=== PATIENT | female | born 1990 | race Caucasian/White ===

== ENCOUNTER → 2020-01-31 16:55 | Outpatient (BNVA) | payer MEDICAID, SELFPAY | PROVIDERS: Visit Provider Nurse Practitioner | DX: R30.0 Dysuria (principal); B37.3 Candidiasis of vulva and vagina; N92.6 Irregular menstruation, unspecified | CPT/HCPCS: 81000; 81025; 87086 ==

== ENCOUNTER → 2020-02-11 11:16 | Outpatient (BNVA) | payer MEDICAID, SELFPAY | PROVIDERS: Visit Provider Family Medicine Adult Medicine | DX: E11.9 Type 2 diabetes mellitus without complications (principal); E66.01 Morbid (severe) obesity due to excess calories; Z68.42 Body mass index [BMI] 45.0-49.9, adult; N92.6 Irregular menstruation, unspecified; Z00.00 Encounter for general adult medical examination without abnormal findings; F32.9 Major depressive disorder, single episode, unspecified; F41.9 Anxiety disorder, unspecified; Z76.89 Persons encountering health services in other specified circumstances | CPT/HCPCS: 80053; 80061; 83036; 84443; 85025 ==

== ENCOUNTER → 2020-04-15 11:29 | Outpatient (BNVA) | payer MEDICAID, SELFPAY | PROVIDERS: Visit Provider Obstetrics & Gynecology | DX: N91.2 Amenorrhea, unspecified (principal) | CPT/HCPCS: 84146; 84443; 84703 ==

== ENCOUNTER → 2020-05-03 09:53 | Outpatient (BNVA) | payer MEDICAID, SELFPAY | PROVIDERS: Visit Provider Obstetrics & Gynecology | DX: N91.2 Amenorrhea, unspecified (principal) | CPT/HCPCS: 82670; 83001; 84402 ==

== ENCOUNTER → 2020-05-16 08:42 | Outpatient (BNVA) | payer MEDICAID, SELFPAY | PROVIDERS: Visit Provider Internal Medicine | DX: E11.65 Type 2 diabetes mellitus with hyperglycemia (principal); E66.01 Morbid (severe) obesity due to excess calories; Z68.42 Body mass index [BMI] 45.0-49.9, adult; E78.5 Hyperlipidemia, unspecified | CPT/HCPCS: 99205 ==

== ENCOUNTER → 2020-05-20 11:52 | Outpatient (BNVA) | payer MEDICAID, SELFPAY | PROVIDERS: Visit Provider Nurse Practitioner Family | DX: E11.9 Type 2 diabetes mellitus without complications (principal) | CPT/HCPCS: 83036 ==

== ENCOUNTER 2020-05-21 22:33 | Emergency (ER) | payer MEDICAID, SELFPAY ==
[2020-05-21 22:50] VITALS: BP 147/80; PULSE 114; RESP 20; TEMP 37.8; O2SAT 96; BMI 44.6
[2020-05-22 01:01] VITALS: BP 145/76; PULSE 87; RESP 17; O2SAT 92
[2020-05-22 01:23] LABS: Basophils % 0.2 %; Eosinophils % 0.2 %; Hematocrit 32.4 % (37.0-47.0); Hemoglobin 10.7 g/dL (11.5-15.3); Lymphocytes % 12.6 %; Mean Corpuscular Hemoglobin 29.9 pg (28.0-34.0); Mean Corpuscular Volume 90.5 fL (81-99); Mean Platelet Volume 10.8 fL (7.4-10.4); Monocytes # 0.8 10^3/uL (0.2-0.9); Monocytes % 9.8 %; Neutrophils # 6.18 10^3/uL (1.8-7.7); Neutrophils % 76.7 %; Nucleated Red Blood Cells % 0 %; Platelet Count 257 10^3/cmm (130-400); Red Blood Count 3.58 10^6/uL (4.1-5.3); Red Cell Distribution Width 12.8 % (12.1-15.1); White Blood Count 8.1 10^3/uL (4.0-10.0)
[2020-05-22 01:39] LABS: C Reactive Protein 42.9 mg/L (0.0-4.9); Lactic Sepsis W/Reflex 0.9 mmol/L (0.5-2.2)
[2020-05-22 01:40] LABS: Alanine Aminotransferase 13 U/L (0-33); Albumin Level 3.8 g/dL (3.5-5.2); Alkaline Phosphatase 51 IU/L (35-105); Anion Gap 18.8 (5-19); Aspartate Amino Transferase 19 U/L (0-32); Blood Urea Nitrogen 11 mg/dL (6-20); Calcium 9.2 mg/dL (8.5-10.5); Carbon Dioxide 21 mmol/L (22-29); Chloride 98 mmol/L (98-107); Creatinine Clr Calc Pharmacy 141.8464; Globulin 3.1 g/dL (1.3-4.6); Glomerular Filtration Rate 97.6 mL/min (90-130); Glucose 176 mg/dL (65-115); Osmolality Calculated 282 mOsm/kg (285-295); Potassium 3.8 mmol/L (3.5-5.1); Sodium 134 mmol/L (136-145); Total Bilirubin 0.2 mg/dL (0.15-1.2); Total Protein 6.9 g/dL (6.6-8.7)
[2020-05-22] MEDS: sulfamethoxazole-trimeth DS 160-800 mg Tablet 2 TAB PO (03:00)
--- NOTE | 2020-05-22 19:12 | ED_ITS ---
HPI - Skin/Abscess/Foreign Bdy General: Chief complaint: Skin/Abscess/Foreign Body Stated complaint: fever, wound on stomach Time Seen by Provider: 05/22/20 00:28 History of Present Illness: HPI narrative: 79-year-old female who was placed on Bactrim yesterday following a rash appearing on her left lower quadrant of the abdomen. It had drained some. She began to get a fever this evening, which worried her. She had had 2 doses of antibiotics so far. The redness has not grown much. It is not more painful. She has had no other real symptoms besides the fever. complaint: rash Onset (ago): day(s) Tetanus up to date: yes Severity: moderate Quality: burning Pain Consistency: constant Exacerbating factors: medication Associated symptoms: Reports chills and fever(s); Deny arthralgias, cough, short of breath or vomiting Treatments prior to arrival: OTC topical medication and antibiotic Review of Systems Const: Reports: fever(s) and chills Card: Denies: chest pain Resp: Denies: dyspnea or non-productive cough GI: Denies: vomiting Skin/Breast: Reports: rash and new lesions [facility] ED PFSH: Medical History Anxiety and depression Dyslipidemia Encounter for wellness examination Encounter to establish care with new doctor Hypertension associated with diabetes Irregular menstrual cycle Morbid obesity with BMI of 45.0-49.9, adult Polycystic ovarian syndrome Type 2 diabetes mellitus Surgical History History of dental surgery Family History Grandmother Hypertension Maternal CAD (coronary artery disease) Maternal Social History (Updated 05/17/20 @ 16:32 by Jace Camarillo MD) Smoking and tobacco status: never smoked Alcohol intake: current Alcohol intake frequency: holidays/special occasions only Marital status: Life Partner Number of children: 0 Current occupational status: disabled Physical Exam Const: COMMON NORMALS: no acute distress, patient oriented x3 and alert Eye: COMMON NORMALS: Equal, round and reactive pupils present and EOMs intact bilaterally PUPIL: Yes Equal, round and reactive pupils present Chest: COMMONS NORMALS: normal inspection of the chest Resp: COMMON NORMALS: normal respiratory effort, No use of accessory muscles and clear to auscultation bilaterally AUSCULTATION: clear to auscultation bilaterally Cardio: COMMON NORMALS: regular rate and regular rhythm RATE: regular rate RHYTHM: regular rhythm GI: COMMON NORMALS: Normal to inspection, nondistended, normoactive bowel sounds present Neuro: COMMON NORMALS: patient oriented x3 SENSORIUM/ORIENTATION: Yes alert Skin: NARRATIVE SKIN EXAM: Skin ulceration to the left lower quadrant of the abdomen. Surrounding cellulitis. No fluctuance. Minimal induration. Course Vital Signs: Vital signs: Vital Signs Temperature 100.0 F H 05/21/20 22:50 Pulse Rate 87 05/22/20 01:01 Respiratory Rate 17 05/22/20 01:01 Blood Pressure 145/76 05/22/20 01:01 Pulse Oximetry 92 05/22/20 01:01 MDM - Skin/Abscess/Foreign Bdy MDM Narrative: Medical decision making narrative: Bedside ultrasound does not reveal any drainable abscess. Blood cell count is 8.1. CRP is elevated. She is given her night dose of Bactrim here. She will continue the Bactrim and return for worsening rash, nonresolution of fever. Lab Data: Labs: Lab Results 05/22/20 05/22/20 05/22/20 Range/Units 00:55 00:55 00:55 WBC 8.1 (4.0-10.0) 10^3/ uL RBC 3.58 L (4.1-5.3) 10^6/u L Hgb 10.7 L (11.5-15.3) g/dL Hct 32.4 L (37.0-47.0) % MCV 90.5 (81-99) fL MCH 29.9 (28.0-34.0) pg MCHC 33.0 (30.0-36.0) g/dL RDW 12.8 (12.1-15.1) % Plt Count 257 (130-400) 10^3/c mm MPV 10.8 H (7.4-10.4) fL Neut % (Auto) 76.7 % Lymph % (Auto) 12.6 % [place] % (Auto) 9.8 % Eos % (Auto) 0.2 % Baso % (Auto) 0.2 % Neut # (Auto) 6.18 (1.8-7.7) 10^3/u L Lymph # (Auto) 1.0 (0.8-4.8) 10^3/u L [place] # (Auto) 0.8 (0.2-0.9) 10^3/u L Eos # (Auto) 0.0 (0.0-0.8) 10^3/u L Baso # (Auto) 0.0 (0.0-0.1) 10^3/u L Nucleated RBC % (a uto) 0 % Nucleated RBCs # 0.0 /100WBC Sodium 134 L (136-145) mmol/L Potassium 3.8 (3.5-5.1) mmol/L Chloride 98 (98-107) mmol/L Carbon Dioxide 21 L (22-29) mmol/L Anion Gap 18.8 (5-19) BUN 11 (6-20) mg/dL Creatinine 0.7 (0.5-0.9) mg/dL GFR Calculation 97.6 (90-130) mL/min Glucose 176 H (65-115) mg/dL Calculated Osmolal ity 282 L (285-295) mOsm/k g Lactic Acid 0.9 (0.5-2.2) mmol/L Calcium 9.2 (8.5-10.5) mg/dL Total Bilirubin 0.2 (0.15-1.2) mg/dL AST 19 (0-32) U/L ALT 13 (0-33) U/L Alkaline Phosphata se 51 (35-105) IU/L C-Reactive Protein (0.0-4.9) mg/L Total Protein 6.9 (6.6-8.7) g/dL Albumin 3.8 (3.5-5.2) g/dL Globulin 3.1 (1.3-4.6) g/dL 05/22/20 Range/Units 00:55 WBC (4.0-10.0) 10^3/ uL RBC (4.1-5.3) 10^6/u L Hgb (11.5-15.3) g/dL Hct (37.0-47.0) % MCV (81-99) fL MCH (28.0-34.0) pg MCHC (30.0-36.0) g/dL RDW (12.1-15.1) % Plt Count (130-400) 10^3/c mm MPV (7.4-10.4) fL Neut % (Auto) % Lymph % (Auto) % [place] % (Auto) % Eos % (Auto) % Baso % (Auto) % Neut # (Auto) (1.8-7.7) 10^3/u L Lymph # (Auto) (0.8-4.8) 10^3/u L Seward # (Auto) (0.2-0.9) 10^3/u L Eos # (Auto) (0.0-0.8) 10^3/u L Baso # (Auto) (0.0-0.1) 10^3/u L Nucleated RBC % (a uto) % Nucleated RBCs # /100WBC Sodium (136-145) mmol/L Potassium (3.5-5.1) mmol/L Chloride (98-107) mmol/L Carbon Dioxide (22-29) mmol/L Anion Gap (5-19) BUN (6-20) mg/dL Creatinine (0.5-0.9) mg/dL GFR Calculation (90-130) mL/min Glucose (65-115) mg/dL Calculated Osmolal ity (285-295) mOsm/k g Lactic Acid (0.5-2.2) mmol/L Calcium (8.5-10.5) mg/dL Total Bilirubin (0.15-1.2) mg/dL AST (0-32) U/L ALT (0-33) U/L Alkaline Phosphata se (35-105) IU/L C-Reactive Protein 42.9 H (0.0-4.9) mg/L Total Protein (6.6-8.7) g/dL Albumin (3.5-5.2) g/dL Globulin (1.3-4.6) g/dL Discharge Plan Discharge Patient Disposition: Home Clinical Impression: Cellulitis Qualifiers: Site of cellulitis: trunk Site of cellulitis of trunk: abdominal wall Qualified Code(s): L03.311 - Cellulitis of abdominal wall Condition: Stable Prescriptions: No Action ibuprofen 200 mg capsule 200 mg PO Q6H PRNRF: 0 lisinopril 20 mg tablet 20 mg PO DAILY Qty: 30 RF: 5 (DME) OneTouch Ultra Blue Test Strip Strip See Rx Instructions .ROUTE .MEDSUPPLY RF: 0 Jardiance 25 mg tablet 25 mg PO DAILY Qty: 90 RF: 3 Victoza 3-Fady 0.6 mg/0.1 mL (18 mg/3 mL) pen injector See Rx Instructions SUBCUT .COMPLEX Qty: 27 RF: 3 (DME) pen needle, diabetic [BD Ultra-Fine Dina Pen Needle] 32 gauge x 5/32 needle See Rx Instructions .ROUTE .MEDSUPPLY Qty: 90 RF: 3 sulfamethoxazole-trimethoprim [Bactrim] 400-80 mg tablet 1 tab PO BID 7 Days Qty: 14 RF: 0 mupirocin 2 % ointment 1 applic topical TID Qty: 22 RF: 0 niacin 250 mg capsule, extended release 250 mg PO DAILY Qty: 30 RF: 5 metformin 500 mg tablet 500 mg PO BID Qty: 60 RF: 5 (DME) blood-glucose meter [OneTouch Ultra2 Meter] Misc See Rx Instructions .ROUTE .MEDSUPPLY Qty: 1 RF: 0 (DME) lancets [OneTouch UltraSoft Lancets] Misc See Rx Instructions .ROUTE .MEDSUPPLY Qty: 100 RF: 2 venlafaxine 25 mg tablet 25 mg PO BID Qty: 60 RF: 1 norethindrone-e.estradiol-iron [Junel FE (28)] 1.5 mg-30 mcg (21)/75 mg (7) tablet 1 tab PO DAILY Qty: 84 RF: 4 Discharge Orders: Discharge ED (Routine); Ordered 05/22/20 Ordered By: Og Barrett Patient Instructions: Cellulitis (ED) Activity Restrictions/Additional Instructions: Return for continued fever greater than 100 despite 2-3 more doses of antibiotics, spreading redness or swelling despite 2-3 doses of antibiotics, increasing pain, other concerning symptoms. Coding Level of Care Code ED Model And Mold Maker for Maureen Pagan
== END 2020-05-22 04:12 | disposition home or self-care (01) ==
PROVIDERS: Nurse Practitioner Family; Emergency Provider Emergency Medicine
DX: L03.311 Cellulitis of abdominal wall (principal); E78.5 Hyperlipidemia, unspecified; I10 Essential (primary) hypertension; E11.9 Type 2 diabetes mellitus without complications
CPT/HCPCS: 80053; 83605; 85025; 86140; 87040

== ENCOUNTER → 2020-05-26 14:49 | Outpatient (BNVA) | payer MEDICAID, SELFPAY | PROVIDERS: Visit Provider Obstetrics & Gynecology | DX: B00.9 Herpesviral infection, unspecified (principal); N94.9 Unspecified condition associated with female genital organs and menstrual cycle | CPT/HCPCS: 87530 ==

== ENCOUNTER → 2020-08-09 10:39 | Outpatient (BNVA) | payer MEDICAID, SELFPAY | PROVIDERS: Visit Provider Family Medicine Adult Medicine | DX: N94.9 Unspecified condition associated with female genital organs and menstrual cycle (principal) | CPT/HCPCS: 81000 ==

== ENCOUNTER 2020-08-10 05:02 | Inpatient (IN) | payer MEDICAID, SELFPAY ==
[2020-08-10] VITALS (67 sets, daily range): BP systolic 107–206; BP diastolic 72–131; PULSE 72–118; RESP 7–35; TEMP 36.5–37; O2SAT 86–98; BMI 43.4
--- NOTE | 2020-08-10 05:08 | W.ED.ALLEREA ---
Documented by User: Markos Nelson MD 08/10/20 05:11 HPI - Allergic Reaction General: Chief complaint: Allergic Reaction Stated complaint: swollen lip Time Seen by Provider: 08/10/20 05:04 Source: patient Mode of arrival: ambulatory Limitations: no limitations History of Present Illness: HPI narrative: 30-year-old female states she has had upper lip swelling since midnight. She states that swelling came on suddenly and she took some Benadryl and it improved but then started swelling increasingly again. She has never had the swelling before. Her upper lip is quite swollen. She states she had some shortness of breath earlier in the night but that has since improved. She has no difficulty talking or swallowing. She is currently on lisinopril. Denies any fever cough. Associated symptoms: Deny abdominal pain, nausea or vomiting Review of Systems Const: Denies: fever(s), chills, body aches or change in appetite Eyes: Denies: blurry vision or eye discomfort ENMT: Denies: throat pain or dental pain Card: Denies: chest pain Resp: Denies: dyspnea GI: Denies: abdominal pain, nausea, vomiting or diarrhea : Denies: dysuria Musc: Denies: neck pain or back pain Skin/Breast: Denies: rash Neuro: Denies: headache(s) Psych: Denies: depression Cornelio/Lymph: Denies: easy bruising All/Imm: Denies: urticaria PFSH ED PFSH: Medical History Anxiety and depression Chronic gastroesophageal reflux disease Dyslipidemia Encounter for wellness examination Encounter to establish care with new doctor Hypertension associated with diabetes Irregular menstrual cycle Morbid obesity with BMI of 45.0-49.9, adult Polycystic ovarian syndrome Type 2 diabetes mellitus Uvulitis Yeast vaginitis Surgical History History of dental surgery Family History Grandmother Hypertension Maternal CAD (coronary artery disease) Maternal Social History Smoking and tobacco status: never smoked Alcohol intake: current Alcohol intake frequency: holidays/special occasions only Marital status: Life Partner Current occupational status: disabled Physical Exam Const: COMMON NORMALS: no acute distress, patient oriented x3 and healthy appearing HENMT: COMMON NORMALS: normocephalic and atraumatic HEAD & SCALP: normocephalic and atraumatic OTHER: severe swelling to upper lip, no airway involvement, no tongue swelling Eye: COMMON NORMALS: Equal, round and reactive pupils present and EOMs intact bilaterally PUPIL: Yes Equal, round and reactive pupils present Neck/C-Spine: COMMON NORMALS: full ROM and supple Chest: COMMONS NORMALS: normal inspection of the chest and normal palpation of entire chest wall Resp: COMMON NORMALS: normal respiratory effort, No retractions, No use of accessory muscles and clear to auscultation bilaterally AUSCULTATION: clear to auscultation bilaterally Cardio: COMMON NORMALS: regular rate, regular rhythm and No murmurs present (Cardio) RATE: regular rate RHYTHM: regular rhythm GI: COMMON NORMALS: Normal to inspection, nondistended, normoactive bowel sounds present, Soft to palpation, non-tender and no masses PALPATION: Yes Soft to palpation Extremity: COMMON NORMALS: normal to inspection and full ROM Neuro: COMMON NORMALS: patient oriented x3, moves all extremities and no focal motor deficits Psych: COMMON NORMALS: mental status grossly normal, Normal thought process present and cooperative THOUGHT PROCESS: Normal thought process present Skin: COMMON NORMALS: no rashes or lesions noted and no wounds GENERAL SKIN EXAM: no rashes or lesions noted Course Vital Signs: Vital signs: Vital Signs Temperature 98.6 F 08/10/20 12:00 Pulse Rate 81 08/10/20 14:15 Respiratory Rate 19 H 08/10/20 14:15 Blood Pressure 132/93 08/10/20 14:15 Pulse Oximetry 96 08/10/20 14:15 MDM - Allergic Reaction Lab Data: Labs: Lab Results 08/10/20 Range/Units 05:12 Complement C4 19 (10-40) mg/dL Discharge Plan Discharge Patient Disposition: Admitted As Inpatient Admit Provider: Rolanda White Clinical Impression: Angioedema, Allergic reaction, Adverse reaction to drug, Hypoxia Condition: Stable Sign Out Sign Out Data: Patient Sign Out occurred on 08/10/20 at 06:11. Patient's care was discussed, and care was transferred from to Fabrice Alberto DO. Coding Level of Care Code ED Pharmacoepidemiologist for Chg Fwd Exam Comprehensive Documented by User: Fabrice Alberto DO 08/10/20 14:44 HPI - Allergic Reaction General: Chief complaint: Allergic Reaction Stated complaint: swollen lip Time Seen by Provider: 08/10/20 05:04 PFSH ED PFSH: Medical History Anxiety and depression Chronic gastroesophageal reflux disease Dyslipidemia Encounter for wellness examination Encounter to establish care with new doctor Hypertension associated with diabetes Irregular menstrual cycle Morbid obesity with BMI of 45.0-49.9, adult Polycystic ovarian syndrome Type 2 diabetes mellitus Uvulitis Yeast vaginitis Surgical History History of dental surgery Family History Grandmother Hypertension Maternal CAD (coronary artery disease) Maternal Social History Smoking and tobacco status: never smoked Alcohol intake: current Alcohol intake frequency: holidays/special occasions only Marital status: Life Partner Current occupational status: disabled Course Vital Signs: Vital signs: Vital Signs Temperature 98.6 F 08/10/20 12:00 Pulse Rate 81 08/10/20 14:15 Respiratory Rate 19 H 08/10/20 14:15 Blood Pressure 132/93 08/10/20 14:15 Pulse Oximetry 96 08/10/20 14:15 MDM - Allergic Reaction MDM Narrative: Medical decision making narrative: Care assumed a change of shift I went to check on the patient she is consistently satting with a good waveform at 86% with 2 L by nasal cannula she begins to go up and gets to 9091% at 4 L she did now is consistently 96%. She still has quite impressive swelling of the upper lip is mildly tachycardic she last received epi 50 minutes ago. On her lung exam there is diminished breath sounds but no expiratory wheezes. Discussed with the hospitalist will admit her to the ICU for observation and given her IV Pepcid she had previously received steroids epi and Benadryl. We will give scheduled Benadryl. She will need medication adjustment to maintain her blood pressure she was impressively hypertensive when she first came in at 178/100, she is now 153/85. Lab Data: Labs: Lab Results 08/10/20 Range/Units 05:12 Complement C4 19 (10-40) mg/dL Discharge Plan Discharge Patient Disposition: Admitted As Inpatient Admit Provider: Rolanda White Clinical Impression: Angioedema, Allergic reaction, Adverse reaction to drug, Hypoxia Condition: Stable Sign Out Sign Out Data: Patient Sign Out occurred on 08/10/20 at 06:11. Patient's care was discussed, and care was transferred from to Fabrice Alberto DO. Coding Level of Care Code ED Pharmacoepidemiologist for Maureen Fwd Exam Comprehensive
[2020-08-10] MEDS: diphenhydrAMINE 50 mg/mL SDV 1mL IVP ×6 (05:15→21:49)
[2020-08-10] MEDS: EPINEPHrine 1 mg/mL INJ 0.5 MG IM (05:16)
[2020-08-10] MEDS: famotidine 20 mg/2 mL INJ 40 MG IVP (06:15)
--- NOTE | 2020-08-10 08:03 | PC.PHAR ---
PT STATES SHE TAKES CARE OF HER OWN MEDICATIONS-PT STATES SHE HAS STILL BEEN TAKING 500MG OF METFORMIN BID-PT HAS RX READY AT [facility] FOR 1000MG BID-PT HASNT PICKED UP THAT RX YET-PT ALSO HAS A FLUCONAZOLE 150MG TO WOOD TOOL MAKER FROM [facility]-
[2020-08-10 09:26] LABS: Glucose Point of Care 241 mg/dL (70-110)
[2020-08-10] MEDS: metoprolol succinate ER (24 HR) 50 mg Tablet 25 MG PO (09:33)
[2020-08-10] MEDS: amlodipine 5 mg Tablet PO (09:33)
[2020-08-10] MEDS: famotidine 20 mg/2 mL INJ IVP ×4 (09:34→20:08)
[2020-08-10] MEDS: metoprolol tartrate 1 mg/1 mL SDV 5 mL 5 MG IV (09:35)
--- NOTE | 2020-08-10 10:52 | PC.CHAP ---
Pastoral Care Encounter/Spiritual Assessment Type of Contact [] Declined shank maker visit [] Patient/Family/Request visit [] Outpatient visit [] Follow-up visit [] Physician referral [] Code/Alert [x] Routine visit [] Staff referral [] Actively dying [] Patient sleeping [] Family support [] [] Out of room [] Palliative care [] [x] Receiving care in room [] Pre-surgical visit [] Trauma [] Long length of stay [x] ICU visit [] Other: Relational/Emotional Strength [] Patient feels connected with others/family/visitors/staff [] Distress [] Loneliness/isolation [] Abandonment Spirituality of Patient [x] Person of Jeanne [] Attends Zoroastrian of their Jeanne [] Believes in Prayer [] Reads Bible or Sikhism materials [] There are Spiritual issues to be addressed Lockstitch Sleeve Setter Interventions [x] Prayer [x] Active listening [x] Non-anxious presence [x] Spiritual/emotional support [] Crisis/trauma care [] Spiritual counseling [] Bereavement support [] Provided bereavement packet [] Provided Bible/devotional materials [] Provided toy/stuffed animal, coloring book to patient or family member [] Provided Communion [] Anointing/[place] [] Salvation [x] Completed spiritual assessment [] Other: Impact on Illness or Injury [] Angry [] Fearful [] Anxious [] Often cries [] Exhaustion [] Unable to work [] Unable to attend mu-ism [] Unable to walk/stand [] Unable to read [] Unable to drive [] Unable to eat/drink [] Unable to sleep [] Unable to be with family [] Patient intubated [] Other: Summary resting well... Time spent with patient 10 min
--- NOTE | 2020-08-10 10:53 | PC.CHAP ---
Pastoral Care Encounter/Spiritual Assessment Type of Contact [] Declined bread dumper visit [] Patient/Family/Request visit [] Outpatient visit [] Follow-up visit [] Physician referral [] Code/Alert [x] Routine visit [] Staff referral [] Actively dying [] Patient sleeping [] Family support [] [] Out of room [] Palliative care [] [] Receiving care in room [] Pre-surgical visit [] Trauma [] Long length of stay [x] ICU visit [] Other: Relational/Emotional Strength [] Patient feels connected with others/family/visitors/staff [] Distress [] Loneliness/isolation [] Abandonment Spirituality of Patient [] Person of Jeanne [] Attends Christianity of their Jeanne [] Believes in Prayer [] Reads Bible or Jainism materials [] There are Spiritual issues to be addressed Manager File Interventions [x] Prayer [] Active listening [] Non-anxious presence [] Spiritual/emotional support [] Crisis/trauma care [] Spiritual counseling [] Bereavement support [] Provided bereavement packet [] Provided Bible/devotional materials [] Provided toy/stuffed animal, coloring book to patient or family member [] Provided Communion [] Anointing/Cutler [] Salvation [x] Completed spiritual assessment [] Other: Impact on Illness or Injury [] Angry [] Fearful [] Anxious [] Often cries [] Exhaustion [] Unable to work [] Unable to attend mandaen [] Unable to walk/stand [] Unable to read [] Unable to drive [] Unable to eat/drink [] Unable to sleep [] Unable to be with family [] Patient intubated [] Other: Summary Time spent with patient
--- NOTE | 2020-08-10 10:59 | PC.NURSE ---
Nurse received patient from ER staff at 0820. Vitals within normal limits. Pt has no complaints at this time. Upper lip is significantly swollen and pt does have some trouble speaking clearly because of it, but pt is not experiencing any difficulty breathing. No adventitious breath sounds at this time.
--- NOTE | 2020-08-10 11:00 | P.HP_ITS ---
Providers/Chief Complaint Admitting Physician: Rolanda White MD Chief Complaint: swollen lip History of Present Illness Adele Rodriguez is a 30 year old female who presented overnight after waking up at midnight with c/o sudden facial swelling, lip swelling, dyspnea. No hives. No new food. No past history of anaphylaxis. No known food allergies. No animal or insect bites. No new medications Review of Systems General: Reports: 10 or more systems reviewed and unremarkable except in HPI and below Const: Denies: fever(s), chills or body aches Eyes: Denies: change in vision, blurry vision or photophobia ENMT: Reports: hoarseness; Denies: throat pain, enlarged tonsils, odynophagia or nasal congestion Card: Denies: chest pain, palpitations, irregular heart rhythm, edema, swelling of feet/ankles, lightheadedness, pre-syncope, dyspnea on exertion or orthopnea Resp: Denies: dyspnea, productive cough, non-productive cough, wheezing, stridor, pain on inspiration, change in phlegm color, hemoptysis or chest congestion GI: Denies: abdominal pain, nausea, vomiting, hematemesis, coffee ground emesis, dysphagia, heartburn, diarrhea, constipation, GI cramping, change in st ool character, hematochezia or melena : Denies: flank pain, difficulty voiding, dysuria, urinary frequency, urinary urgency, urinary hesitancy or hematuria Musc: Denies: neck pain, back pain, extremity pain, joint swelling, joint warmth or deformity Neuro: Denies: headache(s), numbness in extremities, weakness in extremities, sensory changes, difficulty walking, frequent falls, dizziness, vertigo, behavioral changes, Slurred speech present or seizure-like activity Psych: Denies: anxiety, depression, suicidal ideation or homicidal ideation Endo: Denies: polyuria, polydipsia, tired all the time, cold intolerance or hot flashes Cornelio/Lymph: Denies: easy bruising or easy bleeding Medications/Allergies Home Medications Medication Instructions Recorded Confirmed Last Taken Type blood-glucose meter #1 ea 02/15/20 08/10/20 Unknown Rx lancets #100 ea 02/15/20 08/10/20 Unknown Rx blood sugar diagnostic ea 05/16/20 08/10/20 Unknown History pen needle, diabetic 32 gauge x #90 ea 05/16/20 08/10/20 Unknown Rx fluconazole 150 mg tablet 150 mg PO Q3D #2 tab 08/09/20 08/10/20 Unknown Rx .08/07 () 1 tab PO DAILY@08/10/20 08/10/20 08/09/20 History aspirin [Aspir-81] 81 mg PO PRN 08/10/20 08/10/20 Unknown History empagliflozin [Jardiance] 25 mg PO DAILY@08/10/20 08/10/20 08/09/20 History ibuprofen 400 mg PO PRN 08/10/20 08/10/20 Unknown History liraglutide [Victoza 3-Fady] 1.8 mg SUBCUT DAILY@08/10/20 08/10/20 08/09/20 History metformin 1,000 mg PO BID 08/10/20 08/10/20 Unknown History metformin 500 mg PO BID@08/10/20 08/10/20 08/09/20 History miconazole nitrate [Monistat 3] 200 mg VAGINAL PRN 08/10/20 08/10/20 08/09/20 History pantoprazole 20 mg PO DAILY@08/10/20 08/10/20 08/09/20 History venlafaxine 25 mg PO BID@08/10/20 08/10/20 08/09/20 History Allergies Allergy/AdvReac Type Severity Reaction Status Date / Time ROSALINA Inhibitors Allergy ALGY-Swell Verified 08/10/20 07:52 Lip/Tongue/Throat citalopram [From Celexa] Allergy ADR-Nausea Verified 08/10/20 07:52 lisinopril Allergy ALGY-Swell Verified 08/10/20 07:52 Lip/Tongue/Throat PFSH Acute PFSH: Medical History Anxiety and depression Chronic gastroesophageal reflux disease Dyslipidemia Encounter for wellness examination Encounter to establish care with new doctor Hypertension associated with diabetes Irregular menstrual cycle Morbid obesity with BMI of 45.0-49.9, adult Polycystic ovarian syndrome Type 2 diabetes mellitus Uvulitis Yeast vaginitis Surgical History History of dental surgery Family History Grandmother Hypertension Maternal CAD (coronary artery disease) Maternal Social History Smoking and tobacco status: never smoked Alcohol intake: current Alcohol intake frequency: holidays/special occasions only Marital status: Life Partner Current occupational status: disabled Vitals/I&O/Wt Last Vital Signs Temp 97.9 F 08/10/20 19:15 Pulse 91 08/10/20 22:15 Resp 24 H 08/10/20 22:15 BP 155/90 08/10/20 22:15 Pulse Ox 95 08/10/20 22:15 08/10/20 08/10/20 08/10/20 06:59 14:59 22:59 Intake Total 480 / 480 810 / 1290 Balance 480 / 480 810 / 1290 Weight last 48 hrs Weight 111.13 kg Physical Exam Narrative: EXAM NARRATIVE: General: No acute distress, AO x3 HEENT: PERRLA, pupils bilaterally equal and reactive, pallors not present Chest: Normal vesicular breath sounds, no added sounds, equal good air entry bilaterally CVS: S1-S2 regular, no murmurs, no tachycardia, no gallops, no rubs Abdomen: Soft, nontender, no organomegaly, bowel sounds present Neuro: No focal deficits, no facial deformity, AO x3, power 5/5 in all limbs Extremities: facial swelling, lip swelling+, improving A&P Assessment and plan (1) Anaphylaxis: unclear trigger s/p epinephrine in [facility] ER Fcaial swelling and edema much improved continue steroids systemic and benadryl. monitor for ~24 hrs for any signs of recurrence no shock allergy testing as outpatient Status: Acute Qualifiers: Encounter type: initial encounter Qualified Code(s): T78.2XXA - Anaphylactic shock, unspecified, initial encounter (2) Angioedema: Status: Acute Qualifiers: Encounter type: initial encounter Qualified Code(s): T78.3XXA - Angioneurotic edema, initial encounter Attestations Medical Necessity Statement*: anaphylaxis, needs iv steorids and antihistamines Coding Level of Care Code Acute Fisheries Diver for [facility] Latasha Diagnoses Anaphylaxis T78.2XXA Encounter type: initial encounter Angioedema T78.3XXA Encounter type: initial encounter
--- NOTE | 2020-08-10 11:02 | PC.NURSE ---
Nurse is continuing to monitor patient. Lip swelling is noticeably decreased. Speech is still unclear due to swelling, but also improved. Breath sounds continue to be normal.
--- NOTE | 2020-08-10 11:25 | PC.NURSE ---
Per Dr Bradshaw, Held Epinephrine.
[2020-08-10 12:19] LABS: Glucose Point of Care 225 mg/dL (70-110)
[2020-08-10 17:47] LABS: Glucose Point of Care 245 mg/dL (70-110)
--- NOTE | 2020-08-10 18:36 | PC.NURSE ---
Late note: 1635 Pepcid and diphenhydramine was late due to no IV access. Iv in left wrist went bad and nurses had difficulty in getting a new IV. One was eventually placed via ultrasound.
--- NOTE | 2020-08-10 18:37 | PC.NURSE ---
Shift summary: Uneventful shift. Patient came to the ICU with visibly swollen lips and difficulty speaking due to the swelling, but no airway compromise. Throughout shift the swelling has decraed and pt speaking has improved. Airway remains intact and vitals stayed within normal limits throughout shift.
[2020-08-10 19:58] LABS: Glucose Point of Care 303 mg/dL (70-110)
--- NOTE | 2020-08-10 21:53 | PC.NURSE ---
New Orders; RN observed patient's lips to have swollen in size compared to previous assessment done 1 hour ago. Patient placed in high fowlers and assessed. No other complications noted at this time. SPO2 status 93-95%. No audible stridor, and patient denies any complications or issues with her breathing. RN notified MD Christopher stone driller and was given new orders to give another additional early dose of Benadryl IVP. Med administered as indicated. Patient resting with VSS/remaining at baseline. Room visible from nurses station.
[2020-08-11] VITALS (35 sets, daily range): BP systolic 92–152; BP diastolic 72–104; PULSE 65–96; RESP 12–26; TEMP 36.7–37.2; O2SAT 90–96
[2020-08-11] MEDS: famotidine 20 mg/2 mL INJ IVP ×4 (00:35→13:10)
[2020-08-11] MEDS: diphenhydrAMINE 50 mg/mL SDV 1mL IVP ×4 (00:35→13:10)
[2020-08-11 04:53] LABS: Basophils % 0.1 %; Hematocrit 32.4 % (37.0-47.0); Hemoglobin 10.3 g/dL (11.5-15.3); Lymphocytes # 1.4 10^3/uL (0.8-4.8); Lymphocytes % 9.7 %; Mean Corpuscular HGB Conc 31.8 g/dL (30.0-36.0); Mean Corpuscular Hemoglobin 28.9 pg (28.0-34.0); Mean Corpuscular Volume 90.8 fL (81-99); Mean Platelet Volume 10.4 fL (7.4-10.4); Monocytes # 0.4 10^3/uL (0.2-0.9); Neutrophils # 12.25 10^3/uL (1.8-7.7); Neutrophils % 85.7 %; Nucleated Red Blood Cells % 0 %; Platelet Count 290 10^3/cmm (130-400); Red Blood Count 3.57 10^6/uL (4.1-5.3); Red Cell Distribution Width 13.9 % (12.1-15.1); White Blood Count 14.3 10^3/uL (4.0-10.0)
[2020-08-11 05:10] LABS: Alanine Aminotransferase 18 U/L (0-33); Albumin Level 3.7 g/dL (3.5-5.2); Alkaline Phosphatase 50 IU/L (35-105); Anion Gap 20.2 (5-19); Aspartate Amino Transferase 20 U/L (0-32); Blood Urea Nitrogen 18 mg/dL (6-20); Calcium 9.3 mg/dL (8.5-10.5); Carbon Dioxide 19 mmol/L (22-29); Chloride 100 mmol/L (98-107); Globulin 3.6 g/dL (1.3-4.6); Glomerular Filtration Rate 115.9 mL/min (90-130); Glucose 177 mg/dL (65-115); Osmolality Calculated 286 mOsm/kg (285-295); Potassium 4.2 mmol/L (3.5-5.1); Sodium 135 mmol/L (136-145); Total Bilirubin 0.2 mg/dL (0.15-1.2); Total Protein 7.3 g/dL (6.6-8.7)
--- NOTE | 2020-08-11 05:34 | PC.NURSE ---
Patient c/o severe itching and burning noted to labia area. RN assessed and found patient to be extremely excoriated with deep redness to vaginal area. Patient verbalized that she has recently been diagnosed with yeast infection earlier this week, by PCP. RN questioned if patient has been prescribed and taken any new medications based on this dx, to which patient verbalized no . RN educated on need for correct wiping techniques, as fecal matter was found within vaginal area with excoriation and redness and with pt c/o tenderness, itching, and burning. RN advised patient on best way to clean area, and how to wipe when using the restroom to avoid fecal matter entering or coming in contact with vaginal area. Warm water with gentle soap was given with wash cloths, in order for patient to clean herself in efforts of removing fecal matter. Patient verbalized understandment and almost immediate relief with slight itching still being noted.
[2020-08-11 08:09] LABS: Glucose Point of Care 196 mg/dL (70-110)
--- NOTE | 2020-08-11 09:08 | PC.CHAP ---
Pastoral Care Encounter/Spiritual Assessment Type of Contact [] Declined canal boat operator visit [] Patient/Family/Request visit [] Outpatient visit [] Follow-up visit [] Physician referral [] Code/Alert [x] Routine visit [] Staff referral [] Actively dying [] Patient sleeping [] Family support [] [] Out of room [] Palliative care [] [] Receiving care in room [] Pre-surgical visit [] Trauma [] Long length of stay [x] ICU visit [] Other: Relational/Emotional Strength [] Patient feels connected with others/family/visitors/staff [] Distress [] Loneliness/isolation [] Abandonment Spirituality of Patient [x] Person of Jeanne [] Attends Druze of their Jeanne [] Believes in Prayer [] Reads Bible or Lutheran materials [] There are Spiritual issues to be addressed Ranch Helper Interventions [x] Prayer [x] Active listening [x] Non-anxious presence [x] Spiritual/emotional support [] Crisis/trauma care [] Spiritual counseling [] Bereavement support [] Provided bereavement packet [] Provided Bible/devotional materials [] Provided toy/stuffed animal, coloring book to patient or family member [] Provided Communion [] Anointing/Atco [] Salvation [x] Completed spiritual assessment [] Other: Impact on Illness or Injury [] Angry [] Fearful [] Anxious [] Often cries [] Exhaustion [] Unable to work [] Unable to attend yazdanism [] Unable to walk/stand [] Unable to read [] Unable to drive [] Unable to eat/drink [] Unable to sleep [] Unable to be with family [] Patient intubated [] Other: Summary upper lip returned to normal size, however reaction still present in bottom lip... Time spent with patient 5 min
[2020-08-11 11:38] LABS: Glucose Point of Care 283 mg/dL (70-110)
--- NOTE | 2020-08-11 18:52 | PM.DCS ---
Discharge Providers Date of Admission: 08/10/20 08:35 Date of Discharge: August 11, 2020 Attending Provider at Admission: Rolanda White MD Attending Provider at Discharge: Natalie Bradshaw MD Diagnoses at Discharge Discharge Diagnosis (1) Anaphylaxis: Status: Acute Qualifiers: Encounter type: initial encounter Qualified Code(s): T78.2XXA - Anaphylactic shock, unspecified, initial encounter (2) Angioedema: Status: Acute Qualifiers: Encounter type: initial encounter Qualified Code(s): T78.3XXA - Angioneurotic edema, initial encounter Reason for Visit Reason for Visit: swollen lip Hospital Course Hospital Course Adele Rodriguez is a 30 year old female who presented overnight after waking up at midnight with c/o sudden facial swelling, lip swelling, dyspnea. No hives. No new food. No past history of anaphylaxis. No known food allergies. No animal or insect bites. No new medications. HAd anaphylaxis. Treated with epinephrine in the ER, followed by systemic steroids and benadryl for ~24 hrs with improvement and without signs of recurrence. 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: no focal neuro deficits Discharge Data Data Completed and Pending: Labs from last 24 hours 08/11/20 08/11/20 08/11/20 11:35 07:40 04:17 WBC RBC Hgb Hct MCV MCH MCHC RDW Plt Count MPV Neut % (Auto) Lymph % (Auto) [place] % (Auto) Eos % (Auto) Baso % (Auto) Neut # (Auto) Lymph # (Auto) [place] # (Auto) Eos # (Auto) Baso # (Auto) Nucleated RBC % (a uto) Nucleated RBCs # Sodium 135 L Potassium 4.2 Chloride 100 Carbon Dioxide 19 L Anion Gap 20.2 H BUN 18 Creatinine 0.6 GFR Calculation 115.9 Glucose 177 H POC Glucose 283 H 196 H Calculated Osmolal ity 286 Calcium 9.3 Total Bilirubin 0.2 AST 20 ALT 18 Alkaline Phosphata se 50 Total Protein 7.3 Albumin 3.7 Globulin 3.6 08/11/20 08/10/20 04:17 19:54 WBC 14.3 H RBC 3.57 L Hgb 10.3 L Hct 32.4 L MCV 90.8 MCH 28.9 MCHC 31.8 RDW 13.9 Plt Count 290 MPV 10.4 Neut % (Auto) 85.7 Lymph % (Auto) 9.7 [place] % (Auto) 3.0 Eos % (Auto) 0.0 Baso % (Auto) 0.1 Neut # (Auto) 12.25 H Lymph # (Auto) 1.4 [place] # (Auto) 0.4 Eos # (Auto) 0.0 Baso # (Auto) 0.0 Nucleated RBC % (a uto) 0 Nucleated RBCs # 0.0 Sodium Potassium Chloride Carbon Dioxide Anion Gap BUN Creatinine GFR Calculation Glucose POC Glucose 303 H Calculated Osmolal ity Calcium Total Bilirubin AST ALT Alkaline Phosphata se Total Protein Albumin Globulin Vitals: Last Vital Signs Temp 98.1 F 08/11/20 11:00 Pulse 89 08/11/20 13:00 Resp 14 08/11/20 13:00 BP 144/72 08/11/20 13:00 Pulse Ox 95 08/11/20 13:00 Discharge Plan Discharge Patient Disposition: Home Condition: Stable Prescriptions: New epinephrine 0.3 mg/0.3 mL auto-injector 0.3 mg IM Q10M PRN (Reason: anaphylaxis) Qty: 1 RF: 1 Continued (DME) OneTouch Ultra Blue Test Strip Strip See Rx Instructions .ROUTE .MEDSUPPLY RF: 0 (DME) pen needle, diabetic [BD Ultra-Fine Dina Pen Needle] 32 gauge x 5/32 needle See Rx Instructions .ROUTE .MEDSUPPLY Qty: 90 RF: 3 fluconazole [Diflucan] 150 mg tablet 150 mg PO Q3D Qty: 2 RF: 0 (DME) blood-glucose meter [OneTouch Ultra2 Meter] Misc See Rx Instructions .ROUTE .MEDSUPPLY Qty: 1 RF: 0 (DME) lancets [OneTouch UltraSoft Lancets] Misc See Rx Instructions .ROUTE .MEDSUPPLY Qty: 100 RF: 2 aspirin 81 mg Tablet,Delayed Release (Dr/Ec) 81 mg PO PRN RF: 0 ibuprofen 200 mg Tablet 400 mg PO PRN RF: 0 miconazole nitrate 200 mg Suppository 200 mg VAGINAL PRN RF: 0 Junel FE 1.5/30 (28) 1.5 mg-30 mcg (21)/75 mg (7) tablet 1 tab PO DAILY@20 RF: 0 venlafaxine 25 mg tablet 25 mg PO BID@ RF: 0 pantoprazole 20 mg tablet,delayed release (DR/EC) 20 mg PO DAILY@07 RF: 0 Victoza 3-Fady 0.6 mg/0.1 mL (18 mg/3 mL) pen injector 1.8 mg SUBCUT DAILY@07 RF: 0 Jardiance 25 mg tablet 25 mg PO DAILY@07 RF: 0 metformin 500 mg tablet 500 mg PO BID@, RF: 0 metformin 500 mg tablet 1,000 mg PO BID RF: 0 Discharge Orders: Discharge Order (Routine); Ordered 08/11/20 Ordered By: Natalie Bradshaw Discharge Diet: Usual diet Discharge Activity: Resume usual activity Patient Instructions: Epinephrine (Injection), Anaphylaxis (DC), Opioid Safety Activity Restrictions/Additional Instructions: NO APPOINTMENT SCHEDULED FOR FOLLOW UP , PATIENT THINKING OF SWITHCHING PRIMARY CARE, SHE WILL NEED TO FOLLOW UP FOR NEW PRIMARY CARE PHYSICAN OF CHOICE Discharge Attestations Time Spent in Discharge Care*: less than 30 min Quality Metrics Clinical Quality Measures During this hospital stay, did patient experience: None Coding Level of Care Code Acute Chg FW DC note Diagnoses Anaphylaxis T78.2XXA Encounter type: initial encounter Angioedema T78.3XXA Encounter type: initial encounter
== END 2020-08-11 14:09 | disposition home or self-care (01) | DRG 916 ==
LOC: ER 06:27 → ICU 07:59
PROVIDERS: Admitting Provider Internal Medicine; Emergency Provider Family Medicine; Visit Provider Student in an Organized Health Care Education/Training Program
DX: T78.2XXA Anaphylactic shock, unspecified, initial encounter (principal); Z68.41 Body mass index [BMI] 40.0-44.9, adult; F41.8 Other specified anxiety disorders; K21.9 Gastro-esophageal reflux disease without esophagitis; E78.5 Hyperlipidemia, unspecified; I10 Essential (primary) hypertension; E11.9 Type 2 diabetes mellitus without complications; E66.01 Morbid (severe) obesity due to excess calories; E28.2 Polycystic ovarian syndrome; T78.3XXA Angioneurotic edema, initial encounter; Z79.82 Long term (current) use of aspirin; Z79.4 Long term (current) use of insulin
CPT/HCPCS: 36415; 36416; 80053; 82962; 85025; 86160; 96372; 96374; 96375; 99285; J0171; J1200; J1815; J2930; J3490

== ENCOUNTER → 2020-08-19 14:20 | Outpatient (BNVA) | payer MEDICAID, SELFPAY | PROVIDERS: Visit Provider Nurse Practitioner Women's Health | DX: Z01.419 Encounter for gynecological examination (general) (routine) without abnormal findings (principal); N89.8 Other specified noninflammatory disorders of vagina; A60.04 Herpesviral vulvovaginitis; E28.2 Polycystic ovarian syndrome; B37.3 Candidiasis of vulva and vagina | CPT/HCPCS: 87491; 87591; 87661; 88175 ==

== ENCOUNTER → 2020-10-13 14:29 | Outpatient (BNVA) | payer MEDICAID, SELFPAY | PROVIDERS: PCP Family Medicine Adult Medicine; Visit Provider Obstetrics & Gynecology | DX: R87.612 Low grade squamous intraepithelial lesion on cytologic smear of cervix (LGSIL) (principal); R87.810 Cervical high risk human papillomavirus (HPV) DNA test positive | CPT/HCPCS: 81025; 88305 ==

== ENCOUNTER → 2020-11-17 11:05 | Outpatient (BNVA) | payer MEDICAID, SELFPAY | PROVIDERS: PCP Family Medicine Adult Medicine; Visit Provider Obstetrics & Gynecology | DX: R39.9 Unspecified symptoms and signs involving the genitourinary system (principal) | CPT/HCPCS: 81000; 87077; 87086; 87184 ==

== ENCOUNTER → 2020-12-09 08:44 | Outpatient (BNVA) | payer MEDICAID, SELFPAY | PROVIDERS: PCP Family Medicine Adult Medicine; Visit Provider Family Medicine Adult Medicine | DX: E66.01 Morbid (severe) obesity due to excess calories (principal); E78.5 Hyperlipidemia, unspecified; Z68.42 Body mass index [BMI] 45.0-49.9, adult | CPT/HCPCS: 80061; 83036 ==

== ENCOUNTER → 2021-01-16 09:08 | Outpatient (BNVA) | payer MEDICAID, SELFPAY | PROVIDERS: PCP Family Medicine Adult Medicine; Visit Provider Internal Medicine | DX: E11.65 Type 2 diabetes mellitus with hyperglycemia (principal); E78.5 Hyperlipidemia, unspecified; E66.01 Morbid (severe) obesity due to excess calories; Z68.42 Body mass index [BMI] 45.0-49.9, adult; Z79.84 Long term (current) use of oral hypoglycemic drugs; Z87.891 Personal history of nicotine dependence | CPT/HCPCS: 99214 ==

== ENCOUNTER → 2021-03-24 10:33 | Outpatient (BNVA) | payer MEDICAID, SELFPAY | PROVIDERS: PCP Family Medicine Adult Medicine; Visit Provider Internal Medicine | DX: E11.65 Type 2 diabetes mellitus with hyperglycemia (principal); E78.5 Hyperlipidemia, unspecified; E66.01 Morbid (severe) obesity due to excess calories; Z68.42 Body mass index [BMI] 45.0-49.9, adult; Z79.84 Long term (current) use of oral hypoglycemic drugs | CPT/HCPCS: 99214 ==

== ENCOUNTER → 2021-04-19 10:07 | Outpatient (BNVA) | payer MEDICAID, SELFPAY | PROVIDERS: PCP Family Medicine Adult Medicine; Visit Provider Family Medicine Adult Medicine | DX: D64.9 Anemia, unspecified (principal); D63.8 Anemia in other chronic diseases classified elsewhere; E11.9 Type 2 diabetes mellitus without complications; E11.59 Type 2 diabetes mellitus with other circulatory complications; I10 Essential (primary) hypertension | CPT/HCPCS: 80053; 80061; 83036; 85025 ==

== ENCOUNTER → 2021-04-20 08:50 | Outpatient (BNVA) | payer MEDICAID, SELFPAY | PROVIDERS: PCP Family Medicine Adult Medicine; Visit Provider Obstetrics & Gynecology | DX: R87.612 Low grade squamous intraepithelial lesion on cytologic smear of cervix (LGSIL) (principal); R87.810 Cervical high risk human papillomavirus (HPV) DNA test positive; Z12.4 Encounter for screening for malignant neoplasm of cervix | CPT/HCPCS: 87624 ==

== ENCOUNTER → 2021-06-19 10:20 | Outpatient (BNVA) | payer MEDICAID, SELFPAY | PROVIDERS: PCP Family Medicine Adult Medicine; Visit Provider Internal Medicine | DX: E11.65 Type 2 diabetes mellitus with hyperglycemia (principal); E78.5 Hyperlipidemia, unspecified; E66.01 Morbid (severe) obesity due to excess calories; Z68.42 Body mass index [BMI] 45.0-49.9, adult; Z79.84 Long term (current) use of oral hypoglycemic drugs; Z87.891 Personal history of nicotine dependence | CPT/HCPCS: 99214 ==

== ENCOUNTER 2021-09-18 07:10 | Outpatient (CLI) | payer MEDICAID, SELFPAY ==
[2021-09-18 07:41] LABS: Estmated Average Glucose 180; Hemoglobin A1C 7.9 % (4.0-6.0)
[2021-09-18 07:42] LABS: Chol HDL Ratio 3.15 mg/dL (0.0-4.40); Cholesterol 104 mg/dL (0-200); HDL Cholesterol 33 mg/dL (60-100); LDL Cholesterol Calculated 14 mg/dL (50-129); LDL HDL Ratio 0.42 RATIO (0.00-3.22); Triglycerides 285 mg/dL (0-150)
[2021-09-18 07:59] LABS: Vitamin B12 328 pg/mL (232-1245)
== END 2021-09-18 07:11 | disposition home or self-care (01) ==
PROVIDERS: PCP Family Medicine Adult Medicine; Visit Provider Internal Medicine
DX: E11.65 Type 2 diabetes mellitus with hyperglycemia (principal); E78.5 Hyperlipidemia, unspecified; H91.90 Unspecified hearing loss, unspecified ear; E66.01 Morbid (severe) obesity due to excess calories; Z68.42 Body mass index [BMI] 45.0-49.9, adult; Z87.891 Personal history of nicotine dependence; Z79.84 Long term (current) use of oral hypoglycemic drugs
CPT/HCPCS: 36415; 80061; 82607; 83036; 99214

== ENCOUNTER → 2021-10-10 09:23 | Outpatient (BNVA) | payer MEDICAID, SELFPAY | PROVIDERS: PCP Family Medicine Adult Medicine; Visit Provider Nurse Practitioner Women's Health | DX: S16.1XXA Strain of muscle, fascia and tendon at neck level, initial encounter (principal); R87.612 Low grade squamous intraepithelial lesion on cytologic smear of cervix (LGSIL); N89.8 Other specified noninflammatory disorders of vagina; Z01.419 Encounter for gynecological examination (general) (routine) without abnormal findings; X58.XXXA Exposure to other specified factors, initial encounter | CPT/HCPCS: 87491; 87591; 87624; 87661 ==

== ENCOUNTER 2021-11-16 06:20 | Outpatient (CLI) | payer MEDICAID, SELFPAY ==
--- NOTE | 2021-11-16 07:19 | MR_ITS ---
WS: [id number] MRI BRAIN WITH HIGH-RESOLUTION IMAGING THROUGH THE INTERNAL AUDITORY CANALS WITHOUT CONTRAST HISTORY: SENSORINEURAL hearing LOSS, BILATERAL COMPARISON: None available. TECHNIQUE: Multiplanar, multisequence imaging is performed through the brain. Additional 3 mm imaging performed in multiple planes through the internal auditory canal. Unable to obtain IV access. Study performed without IV contrast. No acute intracranial hemorrhage, midline shift, edema or mass effect. There are very few T2 FLAIR signal hyperintensities. One is closely associated with the inferior LEFT insular ribbon. There is an additional high LEFT parasagittal area of increased T2 signal. Very nons pecific and not inappropriate for age. No mass effect or abnormal signal at the cerebellopontine angl e. No displacement of the 7th or 8th cranial nerves. Normal appearance on this unenhanced study of th e 5th cranial nerves. Ventricles and extra-axial spaces are normal. No inferior displacement of cerebellar tonsils. Clivus and pituitary gland are normal. Internal and external auditory canals: Unremarkable. Cranial nerves VII and VIII complexes: Unremarkable. Cerebellopontine angles: Normal. Paranasal sinuses: Moderate mucoperiosteal thickening LEFT maxillary sinus. No air-fluid levels withi n the sinus cavities. Mastoid air cells: Normal. Calvarium and scalp: Normal. Visualized false pass of Kimbrough and dural venous sinuses demonstrate no abnormality. MR/MR iac's wo con [id number] IMPRESSION: 1. MRI performed without IV contrast. Unable to obtain IV access. 2. No signal abnormalities along the cerebellopontine angles or in the region of the 7th and 8th cranial nerve complexes. 3. Very minimal T2 and FLAIR signal abnormalities as described above. Appropri ate for the patient's age. 4. LEFT maxillary sinus disease.
== END 2021-11-16 06:21 | disposition home or self-care (01) ==
LOC: RAD 06:22
PROVIDERS: PCP Family Medicine Adult Medicine; Visit Provider Specialist
DX: H90.3 Sensorineural hearing loss, bilateral (principal); J32.0 Chronic maxillary sinusitis
CPT/HCPCS: 70551

== ENCOUNTER → 2021-12-19 07:51 | Outpatient (BNVA) | payer MEDICAID, SELFPAY | PROVIDERS: PCP Family Medicine Adult Medicine; Visit Provider Internal Medicine | DX: E11.65 Type 2 diabetes mellitus with hyperglycemia (principal); E78.5 Hyperlipidemia, unspecified; H91.90 Unspecified hearing loss, unspecified ear; E66.01 Morbid (severe) obesity due to excess calories; Z68.42 Body mass index [BMI] 45.0-49.9, adult; Z79.84 Long term (current) use of oral hypoglycemic drugs | CPT/HCPCS: 99214 ==

== ENCOUNTER 2022-03-21 07:39 | Outpatient (CLI) | payer MEDICAID, SELFPAY ==
[2022-03-21 08:47] LABS: Alanine Aminotransferase 16 U/L (0-33); Albumin Level 4.1 g/dL (3.5-5.2); Alkaline Phosphatase 69 U/L (35-105); Aspartate Amino Transferase 18 U/L (0-32); Blood Urea Nitrogen 11 mg/dL (6-20); Calcium 8.9 mg/dL (8.5-10.5); Carbon Dioxide 23 mmol/L (22-29); Chloride 100 mmol/L (98-107); Chol HDL Ratio 2.87 mg/dL (0.0-4.40); Cholesterol 129 mg/dL (0-200); Globulin 3.5 g/dL (1.3-4.6); Glomerular Filtration Rate 142.1 mL/min (90-130); Glucose 186 mg/dL (65-115); HDL Cholesterol 45 mg/dL (60-100); LDL Cholesterol Calculated 59 mg/dL (50-129); LDL HDL Ratio 1.31 RATIO (0.00-3.22); Osmolality Calculated 286 mOsm/kg (285-295); Sodium 136 mmol/L (136-145); Total Bilirubin 0.2 mg/dL (0.15-1.2); Total Protein 7.6 g/dL (6.6-8.7); Triglycerides 127 mg/dL (0-150)
[2022-03-21 08:48] LABS: Creatinine Urine, Random 63 mg/dL (28-217); Microalbum Creatinine Ratio Ur 16 mg/dL (0-20); Microalbumin Random Urine 1 ug/dL (0-20)
[2022-03-21 08:49] LABS: Anion Gap 16.9 (5-19); Potassium 3.9 mmol/L (3.5-5.1)
[2022-03-21 08:51] LABS: Estmated Average Glucose 209; Hemoglobin A1C 8.9 % (4.0-6.0)
== END 2022-03-21 07:40 | disposition home or self-care (01) ==
LOC: LAB 07:43
PROVIDERS: PCP Family Medicine Adult Medicine; Visit Provider Internal Medicine
DX: E78.5 Hyperlipidemia, unspecified (principal); E11.65 Type 2 diabetes mellitus with hyperglycemia; E66.01 Morbid (severe) obesity due to excess calories; Z68.42 Body mass index [BMI] 45.0-49.9, adult; Z79.84 Long term (current) use of oral hypoglycemic drugs
CPT/HCPCS: 80053; 80061; 82044; 83036; 99214

== ENCOUNTER → 2022-06-01 08:30 | Outpatient (BNVA) | payer MEDICAID, SELFPAY | PROVIDERS: PCP Family Medicine Adult Medicine; Visit Provider Nurse Practitioner Women's Health | DX: R30.0 Dysuria (principal); A60.04 Herpesviral vulvovaginitis; Z32.00 Encounter for pregnancy test, result unknown; Z30.41 Encounter for surveillance of contraceptive pills | CPT/HCPCS: 81025; 84315; 87077; 87086; 87184 ==

== ENCOUNTER 2022-07-05 09:00 | Outpatient (CLI) | payer MEDICAID, SELFPAY ==
[2022-07-05 10:27] LABS: Creatinine Urine, Random 75 mg/dL (28-217); Microalbumin Random Urine 4 ug/dL (0-20)
[2022-07-05 10:29] LABS: Microalbum Creatinine Ratio Ur 53 mg/dL (0-20)
[2022-07-05 10:38] LABS: Alanine Aminotransferase 14 U/L (0-33); Alkaline Phosphatase 73 U/L (35-105); Anion Gap 14.1 (5-19); Aspartate Amino Transferase 14 U/L (0-32); Blood Urea Nitrogen 9 mg/dL (6-20); Carbon Dioxide 25 mmol/L (22-29); Chloride 101 mmol/L (98-107); Chol HDL Ratio 3.14 mg/dL (0.0-4.40); Cholesterol 132 mg/dL (0-200); Globulin 3.7 g/dL (1.3-4.6); Glomerular Filtration Rate 141.2 mL/min (90-130); Glucose 169 mg/dL (65-115); HDL Cholesterol 42 mg/dL (60-100); LDL Cholesterol Calculated 55 mg/dL (50-129); LDL HDL Ratio 1.31 RATIO (0.00-3.22); Osmolality Calculated 285 mOsm/kg (285-295); Potassium 4.1 mmol/L (3.5-5.1); Sodium 136 mmol/L (136-145); Total Bilirubin 0.3 mg/dL (0.15-1.2); Total Protein 7.7 g/dL (6.6-8.7); Triglycerides 174 mg/dL (0-150)
[2022-07-05 12:10] LABS: Estmated Average Glucose 200; Hemoglobin A1C 8.6 % (4.0-6.0)
== END 2022-07-05 09:01 | disposition home or self-care (01) ==
LOC: LAB 09:04
PROVIDERS: PCP Family Medicine Adult Medicine; Visit Provider Internal Medicine
DX: E78.5 Hyperlipidemia, unspecified (principal); E11.65 Type 2 diabetes mellitus with hyperglycemia; E66.01 Morbid (severe) obesity due to excess calories; Z68.42 Body mass index [BMI] 45.0-49.9, adult; Z79.84 Long term (current) use of oral hypoglycemic drugs
CPT/HCPCS: 36415; 80053; 80061; 82044; 83036; 99214

== ENCOUNTER 2022-09-02 11:42 | Emergency (ER) | payer MEDICAID, SELFPAY ==
[2022-09-02 12:12] VITALS: BP 155/105; PULSE 83; RESP 16; TEMP 36.8; O2SAT 99; BMI 44.9
[2022-09-02] MEDS: dexamethasone 10 mg/mL INJ IM (14:32)
[2022-09-02] MEDS: tizanidine 4 mg Tablet PO (14:32)
[2022-09-02] MEDS: ketorolac 60 mg/2 mL INJ IM (14:32)
--- NOTE | 2022-09-16 23:27 | ED_ITS ---
HPI - Neck Pain/Injury General: Chief Complaint: Neck Pain/Injury Stated Complaint: Neck Pain Time Seen by Provider: 09/02/22 13:01 Source: patient Mode of arrival: ambulatory Limitations: no limitations History of Present Illness: Patient presents to the ER today for evaluation and treatment of lateral/posterior neck pain and upper back pain. Patient denies any known trauma but does look down quite a bit for work and when on her phone. Tilting of the head down makes the pain worse. She denies tingling or numbness into the fingers. She denies headache or fever. She has been taking baclofen without improvement. Review of Systems General: Reports: 10 or more systems reviewed and unremarkable except in HPI and below PFSH ED PFSH: Medical History Abdominal wall skin ulcer Allergic rhinitis due to allergen Anxiety and depression Chronic gastroesophageal reflux disease Contraception management Diabetes type 2, uncontrolled Dyslipidemia Genital herpes (~05/2020) Confirmed HSV 1 Hypertension associated with diabetes LGSIL on Pap smear of cervix Morbid obesity with BMI of 45.0-49.9, adult Polycystic ovarian syndrome Surgical History History of dental surgery Family History Grandmother Hypertension Maternal Heart disease maternal and paternal Hypercholesteremia maternal Family/Other Uterine cancer paternal cousin, age onset unknown Denies family history of Colon cancer Ovarian cancer Diabetes Breast cancer Thyroid condition Stroke Social History Smoking and tobacco status: former smoker Alcohol intake: never Desire information about alcohol rehabilitation?: No Substance/Drug Use: never Desire information about substance/drug rehabilitation?: No Lives independently: Yes Marital status: Single Physical Exam Const: COMMON NORMALS: no acute distress, patient oriented x3 and alert HENMT: COMMON NORMALS: normocephalic, atraumatic and hearing grossly normal bilaterally HEAD & SCALP: normocephalic and atraumatic Eye: COMMON NORMALS: Equal, round and reactive pupils present, EOMs intact bilaterally and conjunctivae normal CONJUNCTIVA: Yes conjunctivae normal PUPIL: Yes Equal, round and reactive pupils present Neck/C-Spine: COMMON NORMALS: full ROM and no JVD Lymph: LYMPHATIC: no lymphadenopathy noted Resp: COMMON NORMALS: normal respiratory effort, No retractions and No use of accessory muscles Cardio: COMMON NORMALS: no JVD and regular rate RATE: regular rate : COMMON NORMALS: Yes no CVA tenderness BLADDER/KIDNEY EXAM: Yes no CVA tenderness Back/Pelvis: COMMON NORMALS: no CVA tenderness, thoracic and lumbar spine normal to inspection and thoraco-lumbar ROM normal OTHER: Patient has flexion extension capabilities of the neck without difficulty. Reproducible pain on palpation to the paravertebral musculature of the cervical vertebral region and across the musculature of the upper back/shoulders. Extremity: COMMON NORMALS: normal to inspection Neuro: COMMON NORMALS: patient oriented x3 SENSORIUM/ORIENTATION: Yes alert OTHER: Neurovascular intact to the upper extremities. No meningeal signs Psych: COMMON NORMALS: mental status grossly normal, Normal thought process present, cooperative and normal affect THOUGHT PROCESS: Normal thought process present Skin: COMMON NORMALS: no rashes or lesions noted and turgor normal GENERAL SKIN EXAM: no rashes or lesions noted and turgor normal Course Vital Signs: Vital signs: Vital Signs Temperature 98.3 F 09/02/22 12:12 Pulse Rate 83 09/02/22 12:12 Respiratory Rate 16 09/02/22 12:12 Blood Pressure 155/105 09/02/22 12:12 Pulse Oximetry 99 09/02/22 12:12 Oxygen Delivery Me thod Room Air 09/02/22 12:12 MDM - Neck Pain/Injury Medical Decision Making Patient presents to the emergency department today with nontraumatic neck and upper back pain. Pain is reproducible on palpation and she shows no signs of nerve deficit in the upper extremities. No signs of meningeal signs. We will treat symptomatically for muscle strain. Patient's muscle relaxer was switched and added a topical NSAID as well as steroids for the next several days no back pain. Also went over at home therapies she can use in addition to the prescription medications. Recommended a follow-up appointment with her primary care in the next couple of days and went over strict return precautions for neurological change or new onset headache/fever. Patient verbalized understanding and agreement to treatment plan. Differential Diagnosis Likely whiplash injury to neck, cervical radiculopathy, torticollis and strain of neck muscle Discharge Plan Discharge Patient Disposition: Home Clinical Impression: Strain of neck muscle Condition: Stable Prescriptions: New methylprednisolone 4 mg tablets,dose pack See Rx Instructions PO .COMPLEX Qty: 21 0RF Rx Instructions: orally per package directions tizanidine 4 mg capsule 4 mg PO Q8H PRN (Reason: muscle spasticity) Qty: 20 0RF Voltaren Arthritis Pain 1 % gel 4 g topical QID Qty: 100 0RF Rx Instructions: apply to neck and upper back No Action baclofen 10 mg tablet 10 mg PO QID PRN (Reason: neck strain) acetaminophen [Tylenol] 325 mg tablet 325 mg PO QID PRN epinephrine 0.3 mg/0.3 mL auto-injector 0.3 mg IM Q10M PRN (Reason: anaphylaxis) Qty: 1 1RF Rx Instructions: for 2 doses loratadine 10 mg tablet 10 mg PO DAILY Qty: 90 5RF Rx Instructions: 340 B medications fluticasone propionate [Allergy Relief (fluticasone)] 50 mcg/actuation spray,suspension 1 spray intranasal BID Qty: 16 5RF Rx Instructions: administer into each nostril 340 B medications acarbose 100 mg tablet 100 mg PO TID Qty: 270 3RF lidocaine HCl 2 % jelly 1 applic topical QID PRN (Reason: pain) Qty: 30 2RF norethindrone (contraceptive) 0.35 mg tablet 0.35 mg PO DAILY Qty: 84 3RF mupirocin 2 % ointment 1 applic topical BID Qty: 15 0RF venlafaxine 50 mg tablet 50 mg PO BID Qty: 60 5RF (DME) lancets [OneTouch UltraSoft Lancets] Misc See Rx Instructions .ROUTE .MEDSUPPLY Qty: 100 2RF Rx Instructions: test Blood glucose, once, daily. atorvastatin 40 mg tablet See Rx Instructions .ROUTE .COMPLEX Qty: 30 3RF Dose Instruction: TAKE 1 TABLET BY MOUTH EVERY DAY FOR cholesterol medication Rx Instructions: TAKE 1 TABLET BY MOUTH EVERY DAY FOR cholesterol medication losartan 50 mg tablet See Rx Instructions .ROUTE .COMPLEX Qty: 30 3RF Dose Instruction: TAKE 1 TABLET BY MOUTH EVERY DAY FOR BLOOD PRESSURE AND kidneys Rx Instructions: TAKE 1 TABLET BY MOUTH EVERY DAY FOR BLOOD PRESSURE AND kidneys metformin 1,000 mg tablet See Rx Instructions .ROUTE .COMPLEX Qty: 60 3RF Dose Instruction: TAKE 1 TABLET BY MOUTH TWICE DAILY FOR diabetes Rx Instructions: TAKE 1 TABLET BY MOUTH TWICE DAILY FOR diabetes valacyclovir 500 mg tablet 1,000 mg PO BID Qty: 60 6RF ciprofloxacin HCl 500 mg tablet 500 mg PO BID Qty: 14 0RF Victoza 2-Fady 0.6 mg/0.1 mL (18 mg/3 mL) pen injector 1.2 mg SUBCUT DAILY Qty: 1.4 0RF Rx Instructions: 1.2 mg daily for 1 week Victoza 2-Fady 0.6 mg/0.1 mL (18 mg/3 mL) pen injector 1.8 mg SUBCUT DAILY Qty: 12 0RF insulin glargine [Lantus Solostar U-100 Insulin] 100 unit/mL (3 mL) insulin pen 30 unit SUBCUT ONCE 90 Days Qty: 30 0RF atenolol 25 mg tablet See Rx Instructions .ROUTE .COMPLEX Qty: 30 3RF Dose Instruction: TAKE 1 TABLET BY MOUTH EVERY DAY FOR HIGH BLOOD PRESSURE medication Rx Instructions: TAKE 1 TABLET BY MOUTH EVERY DAY FOR HIGH BLOOD PRESSURE medication Jardiance 25 mg tablet See Rx Instructions .ROUTE .COMPLEX Qty: 90 2RF Dose Instruction: TAKE 1 TABLET BY MOUTH EVERY MORNING at 7am FOR diabetes Rx Instructions: TAKE 1 TABLET BY MOUTH EVERY MORNING at 7am FOR diabetes (DME) pen needle, diabetic [BD Ultra-Fine Dina Pen Needle] 32 gauge x 5/32 needle See Rx Instructions .ROUTE .MEDSUPPLY Qty: 90 1RF Rx Instructions: use once ,weekly with ozempic. (DME) OneTouch Verio test strips Strip See Rx Instructions .ROUTE .COMPLEX Qty: 100 3RF Dose Instruction: check blood sugar THREE TIMES DAILY Rx Instructions: check blood sugar THREE TIMES DAILY ibuprofen 200 mg Tablet 400 mg PO PRN Discharge Orders: Discharge ED (Routine); Ordered 09/02/22 Ordered By: Mikala Jimenez Referrals: Williams Dunbar MD [Primary Care Provider] - Discharge Diet: Usual diet Discharge Activity: Increase activity as tolerated Patient Instructions: Cervical Strain (ED) Activity Restrictions/Additional Instructions: Based on the location of your pain and physical examination findings I am suspicious that you have both a cervical neck strain and a trapezius strain. This causes pain on the backside in both sides of your neck extending across your upper back to your shoulders. I am providing you different medication to see if pain is better controlled. Take naproxen rather than ibuprofen during this time. You can still take Tylenol but I recommend only taking 2 pills every 6 hours. I am also going to stop your baclofen and switch you over to tizanidine to see if that medication works better for you. I also recommend applying heating pads for 15 to 20 minutes to your neck muscles to see if that helps improve your mobility. Checking with your primary care doctor later this week for any needed refills on your medication to continue treatment as necessary. Coding Level of Care Code ED Sexual Assault Social Worker for Maureen Pagan
== END 2022-09-02 14:41 | disposition home or self-care (01) ==
PROVIDERS: Emergency Provider Physician Assistant; PCP Family Medicine Adult Medicine
DX: S16.1XXA Strain of muscle, fascia and tendon at neck level, initial encounter (principal); Z79.82 Long term (current) use of aspirin; Z79.4 Long term (current) use of insulin; E11.9 Type 2 diabetes mellitus without complications; E78.5 Hyperlipidemia, unspecified; I10 Essential (primary) hypertension; Z87.891 Personal history of nicotine dependence; X50.9XXA Other and unspecified overexertion or strenuous movements or postures, initial encounter
CPT/HCPCS: 96372; 99284; J1100; J1885

== ENCOUNTER 2022-10-10 09:44 | Outpatient (CLI) | payer MEDICAID, SELFPAY ==
[2022-10-10 10:35] LABS: Alanine Aminotransferase 11 U/L (0-33); Alkaline Phosphatase 61 U/L (35-105); Anion Gap 13.9 (5-19); Aspartate Amino Transferase 16 U/L (0-32); Blood Urea Nitrogen 9 mg/dL (6-20); Calcium 9.3 mg/dL (8.5-10.5); Carbon Dioxide 25 mmol/L (22-29); Chloride 97 mmol/L (98-107); Chol HDL Ratio 2.73 mg/dL (0.0-4.40); Cholesterol 120 mg/dL (0-200); Estmated Average Glucose 197; Globulin 2.7 g/dL (1.3-4.6); Glomerular Filtration Rate 141.2 mL/min (90-130); Glucose 125 mg/dL (65-115); HDL Cholesterol 44 mg/dL (60-100); Hemoglobin A1C 8.5 % (4.0-6.0); LDL Cholesterol Calculated 55 mg/dL (50-129); LDL HDL Ratio 1.25 RATIO (0.00-3.22); Osmolality Calculated 274 mOsm/kg (285-295); Potassium 3.9 mmol/L (3.5-5.1); Sodium 132 mmol/L (136-145); Total Bilirubin 0.3 mg/dL (0.15-1.2); Total Protein 6.7 g/dL (6.6-8.7); Triglycerides 104 mg/dL (0-150)
[2022-10-10 10:44] LABS: Creatinine Urine, Random 12 mg/dL (28-217); Microalbumin Random Urine 1 ug/dL (0-20)
[2022-10-10 10:49] LABS: Microalbum Creatinine Ratio Ur 83 mg/dL (0-20)
== END 2022-10-10 09:45 | disposition home or self-care (01) ==
PROVIDERS: PCP Family Medicine Adult Medicine; Visit Provider Internal Medicine
DX: E66.01 Morbid (severe) obesity due to excess calories (principal); E78.5 Hyperlipidemia, unspecified; H91.90 Unspecified hearing loss, unspecified ear; Z68.42 Body mass index [BMI] 45.0-49.9, adult; E11.65 Type 2 diabetes mellitus with hyperglycemia; Z79.4 Long term (current) use of insulin; Z79.84 Long term (current) use of oral hypoglycemic drugs
CPT/HCPCS: 36415; 80053; 80061; 82044; 83036; 99214

== ENCOUNTER 2022-10-16 18:32 | Emergency (ER) | payer MEDICAID, SELFPAY ==
[2022-10-16 18:37] VITALS: BP 144/87; PULSE 82; RESP 18; TEMP 36.9; O2SAT 97; BMI 44.9
--- NOTE | 2022-10-16 19:44 | XRR_ITS ---
PROCEDURE INFORMATION: Exam: XR Left Knee Exam date and time: 10/16/2022 7:56 PM Age: 32 years old Clinical indication: Pain; Knee; Left; Additional info: Popped knee, pain and swelling TECHNIQUE: Imaging protocol: Radiologic exam of the left knee. Views: 3 views. COMPARISON: No relevant prior studies available. FINDINGS: Bones/joints: Meniscal chondrocalcinosis. Moderate to severe tricompartmental osteoarthritis of the knee. Soft tissues: Normal. XR/XR knee LT 3V* [id number] IMPRESSION: 1. Negative for fracture or dislocation. 2. Meniscal chondrocalcinosis. 3. Moderate to severe tricompartmental osteoarthritis of the knee.
--- NOTE | 2022-10-16 20:26 | ED_ITS ---
HPI - Extremity Problem General: Chief complaint: Extremity Injury, Lower Stated complaint: left knee pain Time Seen by Provider: 10/16/22 19:11 History of Present Illness: 32yo female here with family for evaluation of left knee pain and swelling after popping her knee. States that she does have increased pain to the generalized knee area. Reports that there is localized swelling to the outer aspect of the knee. States that she does have increased pain with weightbearing. She denies fall, trauma, previous injury. She did not take any medication for her pain. Associated symptoms: Deny chest pain, fever(s) or rash Review of Systems Const: Denies: fever(s), chills or body aches ENMT: Denies: throat pain Card: Denies: chest pain Musc: Reports: joint pain (left knee) and joint swelling (localized, left knee) Skin/Breast: Denies: rash PFSH ED PFSH: Medical History Abdominal wall skin ulcer Allergic rhinitis due to allergen Anxiety and depression Chronic gastroesophageal reflux disease Contraception management Diabetes type 2, uncontrolled Dyslipidemia Genital herpes (~05/2020) Confirmed HSV 1 Hypertension associated with diabetes LGSIL on Pap smear of cervix Morbid obesity with BMI of 45.0-49.9, adult No pertinent past medical history neghx:thyroid,dvt/pe PCP: Polycystic ovarian syndrome Surgical History History of dental surgery Family History Grandmother Hypertension Maternal Heart disease maternal and paternal Hypercholesteremia maternal Family/Other Uterine cancer paternal cousin, age onset unknown Denies family history of Colon cancer Ovarian cancer Diabetes Breast cancer Thyroid condition Stroke Social History Smoking and tobacco status: former smoker Alcohol intake: never Desire information about alcohol rehabilitation?: No Substance/Drug Use: never Desire information about substance/drug rehabilitation?: No Lives independently: Yes Marital status: Single Physical Exam Const: COMMON NORMALS: no acute distress, patient oriented x3, healthy appearing and alert GENERAL APPEARANCE: cooperative ORIENTATION/CONSCIOUSNESS: Yes awake OTHER: Patient is sitting upright in a reclined stretcher in no acute distress. She is able to make position changes unassisted. Family is at bedside HENMT: COMMON NORMALS: normocephalic and atraumatic HEAD & SCALP: normocephalic and atraumatic Eye: GENERAL EYE: appearance normal, both eyes and all related structures Chest: CHEST: Yes Symmetrical chest wall rise Resp: COMMON NORMALS: normal respiratory effort EFFORT & INSPECTION: No respiratory distress Cardio: COMMON NORMALS: regular rate RATE: regular rate Extremity: LEFT LOWER EXTREMITY: Yes knee joint Left knee: Yes inspection (lo calized swelling left lateral, approx 2cm in diameter, soft, moveable ) and Yes palpation (tenderness) Neuro: COMMON NORMALS: patient oriented x3 SENSORIUM/ORIENTATION: Yes alert Skin: COMMON NORMALS: no rashes or lesions noted GENERAL SKIN EXAM: no rashes or lesions noted Course Vital Signs: Vital signs: Vital Signs Temperature 98.5 F 10/16/22 18:37 Pulse Rate 82 10/16/22 18:37 Respiratory Rate 18 10/16/22 18:37 Blood Pressure 144/87 10/16/22 18:37 Pulse Oximetry 97 10/16/22 18:37 Oxygen Delivery Me thod Room Air 10/16/22 18:37 MDM - Extremity (Nontraumatic) Medical Decision Making 32yo female here with family for left knee pain and localized swelling after popping her knee. Patient does have increased pain with weightbearing. She denies fall, trauma, previous injury to the knee. Patient is nontoxic in appearance. Vital signs are stable. Differentials include fracture, sprain, strain X-ray of the left knee is negative for fracture or dislocation. Meniscal chondrocalcinosis as well as moderate to severe tricompartmental osteoarthritis were noted. Discussed findings with patient and family. Advised that the pain is likely related to the osteoarthritis. Discussed that the localized swelling may be related to a cyst or fluid from pop in her knee. Elastic wrap applied. Recommend rest, ice, elevation for the pain and swelling. Advised to work on range of motion exercises for the osteoarthritis of her knee. Recommend she follow-up with her doctor for further evaluation and treatment of the osteoarthritis. Advised return to the emergency department if any rapid worsening symptoms and as needed. Lab Data Radiology Impressions Knee X-Ray 10/16/22 19:44 IMPRESSION: 1. Negative for fracture or dislocation. 2. Meniscal chondrocalcinosis. 3. Moderate to severe tricompartmental osteoarthritis of the knee. Discharge Plan Discharge Patient Disposition: Home Clinical Impression: Tricompartment osteoarthritis of left knee, Pain and swelling of left knee Condition: Stable Prescriptions: No Action baclofen 10 mg tablet 10 mg PO QID PRN (Reason: neck strain) acetaminophen [Tylenol] 325 mg tablet 325 mg PO QID PRN epinephrine 0.3 mg/0.3 mL auto-injector 0.3 mg IM Q10M PRN (Reason: anaphylaxis) Qty: 1 1RF Rx Instructions: for 2 doses loratadine 10 mg tablet 10 mg PO DAILY Qty: 90 5RF Rx Instructions: 340 B medications fluticasone propionate [Allergy Relief (fluticasone)] 50 mcg/actuation spray,suspension 1 spray intranasal BID Qty: 16 5RF Rx Instructions: administer into each nostril 340 B medications acarbose 100 mg tablet 100 mg PO TID Qty: 270 3RF lidocaine HCl 2 % jelly 1 applic topical QID PRN (Reason: pain) Qty: 30 2RF norethindrone (contraceptive) 0.35 mg tablet 0.35 mg PO DAILY Qty: 84 3RF mupirocin 2 % ointment 1 applic topical BID Qty: 15 0RF venlafaxine 50 mg tablet 50 mg PO BID Qty: 60 5RF (DME) lancets [OneTouch UltraSoft Lancets] Misc See Rx Instructions .ROUTE .MEDSUPPLY Qty: 100 2RF Rx Instructions: test Blood glucose, once, daily. valacyclovir 500 mg tablet 1,000 mg PO BID Qty: 60 6RF ciprofloxacin HCl 500 mg tablet 500 mg PO BID Qty: 14 0RF Victoza 2-Fady 0.6 mg/0.1 mL (18 mg/3 mL) pen injector 1.2 mg SUBCUT DAILY Qty: 1.4 0RF Rx Instructions: 1.2 mg daily for 1 week Victoza 2-Fady 0.6 mg/0.1 mL (18 mg/3 mL) pen injector 1.8 mg SUBCUT DAILY Qty: 12 0RF insulin glargine [Lantus Solostar U-100 Insulin] 100 unit/mL (3 mL) insulin pen 30 unit SUBCUT ONCE 90 Days Qty: 30 0RF Jardiance 25 mg tablet See Rx Instructions .ROUTE .COMPLEX Qty: 90 2RF Dose Instruction: TAKE 1 TABLET BY MOUTH EVERY MORNING at 7am FOR diabetes Rx Instructions: TAKE 1 TABLET BY MOUTH EVERY MORNING at 7am FOR diabetes (DME) pen needle, diabetic [BD Ultra-Fine Dina Pen Needle] 32 gauge x 5/32 needle See Rx Instructions .ROUTE .MEDSUPPLY Qty: 90 1RF Rx Instructions: use once ,weekly with ozempic. (DME) OneTouch Verio test strips Strip See Rx Instructions .ROUTE .COMPLEX Qty: 100 3RF Dose Instruction: check blood sugar THREE TIMES DAILY Rx Instructions: check blood sugar THREE TIMES DAILY losartan 50 mg tablet See Rx Instructions .ROUTE .COMPLEX Qty: 30 0RF Dose Instruction: TAKE 1 TABLET BY MOUTH EVERY DAY FOR BLOOD PRESSURE and kidneys Rx Instructions: TAKE 1 TABLET BY MOUTH EVERY DAY FOR BLOOD PRESSURE and kidneys metformin 1,000 mg tablet See Rx Instructions .ROUTE .COMPLEX Qty: 60 0RF Dose Instruction: TAKE 1 TABLET BY MOUTH TWICE DAILY FOR diabetes Rx Instructions: TAKE 1 TABLET BY MOUTH TWICE DAILY FOR diabetes atorvastatin 40 mg tablet See Rx Instructions .ROUTE .COMPLEX Qty: 30 0RF Dose Instruction: TAKE 1 TABLET BY MOUTH EVERY DAY FOR cholesterol medication Rx Instructions: TAKE 1 TABLET BY MOUTH EVERY DAY FOR cholesterol medication atenolol 25 mg tablet See Rx Instructions .ROUTE .COMPLEX Qty: 30 0RF Dose Instruction: TAKE 1 TABLET BY MOUTH EVERY DAY FOR HIGH BLOOD PRESSURE medication Rx Instructions: TAKE 1 TABLET BY MOUTH EVERY DAY FOR HIGH BLOOD PRESSURE medication ibuprofen 200 mg Tablet 400 mg PO PRN methylprednisolone 4 mg tablets,dose pack See Rx Instructions PO .COMPLEX Qty: 21 0RF Rx Instructions: orally per package directions tizanidine 4 mg capsule 4 mg PO Q8H PRN (Reason: muscle spasticity) Qty: 20 0RF Voltaren Arthritis Pain 1 % gel 4 g topical QID Qty: 100 0RF Rx Instructions: apply to neck and upper back Discharge Orders: Discharge ED (Routine); Ordered 10/16/22 Ordered By: Yevgeniy Cano Referrals: Williams Dunbar MD [Primary Care Provider] - Discharge Diet: Usual diet Discharge Activity: Increase activity as tolerated Patient Instructions: Osteoarthritis (ED), Knee Pain (ED) Activity Restrictions/Additional Instructions: Use the elastic wrap to provide support of the left knee Rest, ice, elevation to help with swelling and discomfort Follow-up with your doctor, call later this week with an update of symptoms and to discuss or recheck Return to the emergency department as needed Coding Level of Care Code 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
--- NOTE | 2022-10-16 21:24 | PC.NURSE ---
this RN only applied nima wrap and discharged patient
== END 2022-10-16 21:27 | disposition home or self-care (01) ==
PROVIDERS: Emergency Provider Nurse Practitioner; PCP Family Medicine Adult Medicine
DX: M17.12 Unilateral primary osteoarthritis, left knee (principal); Z79.84 Long term (current) use of oral hypoglycemic drugs; Z87.891 Personal history of nicotine dependence; E11.9 Type 2 diabetes mellitus without complications; E78.5 Hyperlipidemia, unspecified; I10 Essential (primary) hypertension
CPT/HCPCS: 12345; 73562; 99283

== ENCOUNTER 2023-01-11 07:45 | Outpatient (CLI) | payer MEDICAID, SELFPAY ==
[2023-01-11 08:43] LABS: Estmated Average Glucose 183
[2023-01-11 08:46] LABS: Alanine Aminotransferase 15 U/L (0-33); Albumin Level 3.8 g/dL (3.5-5.2); Alkaline Phosphatase 59 U/L (35-105); Aspartate Amino Transferase 17 U/L (0-32); Blood Urea Nitrogen 10 mg/dL (6-20); Calcium 9.2 mg/dL (8.5-10.5); Carbon Dioxide 23 mmol/L (22-29); Chloride 99 mmol/L (98-107); Chol HDL Ratio 2.94 mg/dL (0.0-4.40); Cholesterol 106 mg/dL (0-200); Globulin 3.2 g/dL (1.3-4.6); Glomerular Filtration Rate 141.2 mL/min (90-130); Glucose 192 mg/dL (65-115); HDL Cholesterol 36 mg/dL (60-100); LDL Cholesterol Calculated 40 mg/dL (50-129); LDL HDL Ratio 1.11 RATIO (0.00-3.22); Osmolality Calculated 282 mOsm/kg (285-295); Sodium 134 mmol/L (136-145); Total Bilirubin 0.2 mg/dL (0.15-1.2); Triglycerides 152 mg/dL (0-150)
[2023-01-11 08:55] LABS: Creatinine Urine, Random 58 mg/dL (28-217); Microalbum Creatinine Ratio Ur 17 mg/dL (0-20); Microalbumin Random Urine 1 ug/dL (0-20)
== END 2023-01-11 07:46 ==
LOC: LAB 07:46
PROVIDERS: PCP Family Medicine Adult Medicine; Visit Provider Internal Medicine
DX: E66.01 Morbid (severe) obesity due to excess calories (principal); E78.5 Hyperlipidemia, unspecified; Z68.42 Body mass index [BMI] 45.0-49.9, adult; E11.65 Type 2 diabetes mellitus with hyperglycemia; Z79.4 Long term (current) use of insulin; Z79.84 Long term (current) use of oral hypoglycemic drugs
CPT/HCPCS: 36415; 80053; 80061; 82044; 83036; 99214

== ENCOUNTER → 2023-02-22 14:00 | Outpatient (BNVA) | payer MEDICAID, SELFPAY | PROVIDERS: PCP Family Medicine Adult Medicine; Visit Provider Nurse Practitioner Women's Health | DX: Z30.41 Encounter for surveillance of contraceptive pills (principal); R87.612 Low grade squamous intraepithelial lesion on cytologic smear of cervix (LGSIL) | CPT/HCPCS: 87624 ==

== ENCOUNTER → 2023-04-22 08:06 | Outpatient (BNVA) | payer MEDICAID, SELFPAY | PROVIDERS: PCP Family Medicine Adult Medicine; Visit Provider Internal Medicine | DX: E78.5 Hyperlipidemia, unspecified (principal); E11.65 Type 2 diabetes mellitus with hyperglycemia; E66.01 Morbid (severe) obesity due to excess calories; Z68.42 Body mass index [BMI] 45.0-49.9, adult; H91.90 Unspecified hearing loss, unspecified ear; Z79.4 Long term (current) use of insulin; Z79.84 Long term (current) use of oral hypoglycemic drugs | CPT/HCPCS: 36415; 80053; 80061; 82044; 83036; 99214 ==

== ENCOUNTER → 2023-11-27 09:38 | Outpatient (BNVA) | payer MEDICAID, SELFPAY | PROVIDERS: PCP Family Medicine Adult Medicine; Visit Provider Internal Medicine | DX: E11.65 Type 2 diabetes mellitus with hyperglycemia (principal); E78.5 Hyperlipidemia, unspecified | CPT/HCPCS: 36415; 80053; 80061; 82044; 83036 ==

== ENCOUNTER 2023-12-09 07:08 | Emergency (ER) | payer MEDICAID, SELFPAY ==
[2023-12-09 07:18] VITALS: BP 163/98; PULSE 96; RESP 18; TEMP 36.7; O2SAT 99; BMI 47.9
--- NOTE | 2023-12-09 07:24 | XR_ITS ---
WS: [id number] Exam: XR ankle RT min 3V* [id number] Date/Time of Exam: 12/09/2023 7:35 AM Reason For Exam: ankle pain No acute fracture or dislocation. Deformity of the medial malleolus which probably indicates an old f racture. The ankle mortise is equidistant. Vascular calcifications noted about the ankle. Calcificati ons in the Achilles tendon attachment. Normal soft tissues otherwise. XR/XR ankle RT min 3V* [id number] IMPRESSION: 1. No acute fracture noted.
--- NOTE | 2023-12-09 08:10 | XR_ITS ---
WS: [id number] Exam: XR foot RT min 3V* [id number] Date/Time of Exam: 12/09/2023 8:10 AM Reason For Exam: pain No acute fracture or dislocation. The joints are preserved. Vascular calcifications about the foot an d ankle. Calcifications in the Achilles tendon at the calcaneal attachment. XR/XR foot RT min 3V* [id number] IMPRESSION: 1. No acute fracture.
[2023-12-09 11:06] VITALS: BP 146/95; PULSE 84; O2SAT 98
--- NOTE | 2023-12-09 12:57 | ED_ITS ---
HPI - Extremity Problem General: Chief complaint: Extremity Problem,Nontraumatic Stated complaint: Rt ankle/foot pain Time Seen by Provider: 12/09/23 07:24 History of Present Illness: 33-year-old female presents emergency ro om with right foot and ankle pain for the last week. This tried [id number] medications for her with no relief. No trauma or falls or injury. No previous injury that she is aware of to the right ankle. Related Data Previous Rx's Medication Instructions Recorded lancets (OneTouch UltraSoft #100 ea 02/15/20 Lancets) lidocaine HCl 2 % mucosal jelly 1 applic topical QID PRN pain #30 06/01/ mL norethindrone (contraceptive) 0.35 See Rx Instructions .Route 02/22/23 mg tablet .COMPLEX #84 tabs blood sugar diagnostic (OneTouch #100 strips 07/09/23 Verio test strips) atorvastatin 40 mg tablet 40 mg PO DAILY dyslipidemia #90 08/16/23 tabs azelastine 137 mcg (0.1 %) nasal 2 spray intranasal BID nasal 08/16/23 spray congestion #30 mL empagliflozin 25 mg tablet 25 mg PO DAILY #90 tabs 08/16/23 (Jardiance) loratadine 10 mg tablet 10 mg PO DAILY allergies #90 tabs 08/16/23 losartan 50 mg tablet 50 mg PO DAILY #90 tabs 08/16/23 venlafaxine 75 mg tablet 75 mg PO BID mental health 30 days 08/16/23 #60 tabs blood-glucose meter (OneTouch #1 ea 08/20/23 Verio Flex Meter) epinephrine 0.3 mg/0.3 mL 0.3 mg (0.3 mL) IM Q10M PRN 09/27/23 injection, auto-injector anaphylaxis #1 ea pen needle, diabetic 32 gauge x #90 ea 10/08/2332 (BD Ultra-Fine Dina Pen Needle) acarbose 100 mg tablet See Rx Instructions .Route 11/04/23 .COMPLEX #270 tabs atenolol 25 mg tablet See Rx Instructions .Route 11/12/23 .COMPLEX #90 tabs insulin glargine 100 unit/mL (3 See Rx Instructions .Route 11/12/23 mL) subcutaneous pen (Lantus .COMPLEX #15 mL Solostar U-100 Insulin) blood-glucose meter,continuous #1 ea 11/27/23 (Dexcom G7 Lay Out Former) blood-glucose sensor (Dexcom G7 #3 ea 11/27/23 Sensor device) dulaglutide 3 mg/0.5 mL 3 mg (0.5 mL) SUBCUT Q7D #2 mL 11/27/23 [facility] metformin 1,000 mg tablet 1,000 mg PO BID #180 tabs 11/27/23 Allergies Allergy/AdvReac Type Severity Reaction Status Date / Time ROSALINA Inhibitors Allergy ALGY-Swell Verified 11/27/23 07:43 Lip/Tongue/Throat citalopram [From Celexa] Allergy ADR-Nausea Verified 11/27/23 07:43 lisinopril Allergy ALGY-Swell Verified 11/27/23 07:43 Lip/Tongue/Throat Review of Systems Musc: Reports: extremity pain and joint pain; Denies: extremity swelling or joint swelling PFSH ED PFSH: Medical History Scabies infestation Diabetes mellitus Headache above the eye region LGSIL on Pap smear of cervix Contraception management No pertinent past medical history neghx:thyroid,dvt/pe PCP: Allergic rhinitis due to allergen Chronic gastroesophageal reflux disease Genital herpes (~05/2020) Confirmed HSV 1 Polycystic ovarian syndrome Hypertension associated with diabetes Dyslipidemia Anxiety and depression Morbid obesity with BMI of 45.0-49.9, adult Surgical History History of dental surgery Family History Grandmother Hypertension Maternal Heart disease maternal and paternal Hypercholesteremia maternal Family/Other Uterine cancer paternal cousin, age onset unknown Denies family history of Colon cancer Ovarian cancer Diabetes Breast cancer Thyroid disease Stroke Social History Smoking and tobacco/nicotine status: never used tobacco/nicotine Physical Exam 2 Extremity: OTHER: Examination the right ankle no ecchymosis no deformity no swelling no joint effusion pain with attempts at dorsum plantarflexion. Course Vital Signs: Vital signs: Vital Signs Temperature 98.1 F 12/09/23 07:18 Pulse Rate 84 12/09/23 11:06 Respiratory Rate 18 12/09/23 07:18 Blood Pressure 146/95 12/09/23 11:06 Pulse Oximetry 98 12/09/23 11:06 Oxygen Delivery Me thod Room Air 12/09/23 07:18 MDM - Extremity (Nontraumatic) Medical Decision Making X-ray does not show any acute fractures there may be an old fracture in the distal tibia at the medial malleolus but is well cortex. There is no significant joint effusion x-ray of the foot does not show any acute fractures either. Patient is complaining of severe pain. The remainder of the exam is unremarkable. Will discharge the patient home with a posterior splint nonweig htbearing and refer to podiatry. Use anti-inflammatories as needed Medical Records I reviewed the patient's medical records. Lab Data Radiology Impressions Ankle X-Ray 12/09/23 07:24 IMPRESSION: 1. No acute fracture noted. Foot X-Ray 12/09/23 08:10 IMPRESSION: 1. No acute fracture. All radiology interpretation(s) finalized by discharge Discharge Plan Discharge Patient Disposition: Home Clinical Impression: Ankle pain, right, Acute pain of right foot Condition: Stable Prescriptions: No Action lidocaine HCl 2 % jelly 1 applic topical QID PRN (Reason: pain) Qty: 30 2RF azelastine 137 mcg (0.1 %) aerosol,spray 2 spray intranasal BID Qty: 30 5RF Rx Instructions: administer into each nostril loratadine 10 mg tablet 10 mg PO DAILY Qty: 90 5RF Rx Instructions: 340 B medications atorvastatin 40 mg tablet 40 mg PO DAILY Qty: 90 1RF Jardiance 25 mg tablet 25 mg PO DAILY Qty: 90 1RF losartan 50 mg tablet 50 mg PO DAILY Qty: 90 1RF venlafaxine 75 mg tablet 75 mg PO BID 30 Days Qty: 60 5RF norethindrone (contraceptive) 0.35 mg tablet See Rx Instructions .ROUTE .COMPLEX Qty: 84 3RF Dose Instruction: TAKE 1 TABLET BY MOUTH EVERY DAY Rx Instructions: TAKE 1 TABLET BY MOUTH EVERY DAY metformin 1,000 mg tablet 1,000 mg PO BID Qty: 180 1RF (DME) Dexcom G7 Lay Out Former Misc See Rx Instructions .Route Qty: 1 0RF Rx Instructions: As directed (DME) Dexcom G7 Sensor Device See Rx Instructions .Route Qty: 3 3RF Rx Instructions: change sensor every 10 days Trulicity 3 mg/0.5 mL pen injector 3 mg SUBCUT Q7D Qty: 2 3RF Rx Instructions: inject 3mg weekly (DME) lancets [OneTouch UltraSoft Lancets] [facility] [place] [facility] [place] Rx Instructions .ROUTE .MEDSUPPLY Qty: 100 2RF Rx Instructions: test Blood glucose, once, daily. (DME) OneTouch Verio test strips Strip See Rx Instructions .ROUTE .COMPLEX Qty: 100 3RF Dose Instruction: check blood sugar THREE TIMES DAILY Rx Instructions: check blood sugar THREE TIMES DAILY (DME) blood-glucose meter [OneTouch Verio Flex meter] [facility] [place] [facility] [place] See Rx Instructions .Route Qty: 1 0RF Rx Instructions: As directed epinephrine 0.3 mg/0.3 mL auto-injector 0.3 mg IM Q10M PRN (Reason: anaphylaxis) Qty: 1 1RF Rx Instructions: for 2 doses (DME) pen needle, diabetic [BD Ultra-Fine Dina Pen Needle] 32 gauge x 5/32 needle See Rx Instructions .ROUTE .MEDSUPPLY Qty: 90 1RF Rx Instructions: use once ,weekly with ozempic. acarbose 100 mg tablet See Rx Instructions .ROUTE .COMPLEX Qty: 270 1RF Dose Instruction: TAKE 1 TABLET BY MOUTH THREE TIMES DAILY Rx Instructions: TAKE 1 TABLET BY MOUTH THREE TIMES DAILY atenolol 25 mg tablet See Rx Instructions .ROUTE .COMPLEX Qty: 90 0RF Dose Instruction: TAKE 1 TABLET BY MOUTH EVERY DAY FOR HIGH BLOOD PRESSURE Rx Instructions: TAKE 1 TABLET BY MOUTH EVERY DAY FOR HIGH BLOOD PRESSURE insulin glargine [Lantus Solostar U-100 Insulin] 100 unit/mL (3 mL) insulin pen See Rx Instructions .ROUTE .COMPLEX Qty: 15 0RF Dose Instruction: INJECT 38 UNITS SUBCUTANEOUSLY ONCE DAILY Rx Instructions: INJECT 38 UNITS SUBCUTANEOUSLY ONCE DAILY Discharge Orders: Discharge ED (Routine); Ordered 12/09/23 Ordered By: Fabrice Alberto Referrals: Williams Dunbar MD [Primary Care Provider] - Discharge Diet: Usual diet Discharge Activity: Resume usual activity Patient Instructions: Opioid Safety, Pain Management Activity Restrictions/Additional Instructions: Thank you for choosing [facility] for your healthcare needs today. It is very important that you follow up as instructed or that you return to the Emergency Department should you have concerns or if your condition changes or worsens in any way. recommend nonweightbearing on the right foot and leaving the posterior splint in place until you follow-up with the rivet driver. 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
--- NOTE | 2023-12-09 17:47 | DCPLANNER ---
message sent to podiatry for er f/u
== END 2023-12-09 11:07 | disposition home or self-care (01) ==
PROVIDERS: Emergency Provider Family Medicine; PCP Family Medicine Adult Medicine
DX: M25.571 Pain in right ankle and joints of right foot (principal); M79.671 Pain in right foot
CPT/HCPCS: 29515; 73610; 73630; 99283

== ENCOUNTER → 2023-12-16 06:45 | Outpatient (BNVA) | payer MEDICAID, SELFPAY | PROVIDERS: PCP Family Medicine Adult Medicine; Visit Provider Podiatrist Foot & Ankle Surgery | DX: M76.821 Posterior tibial tendinitis, right leg (principal) | CPT/HCPCS: 99203 ==

== ENCOUNTER → 2023-12-17 10:04 | Outpatient (BNVA) | payer MEDICAID, SELFPAY | PROVIDERS: PCP Family Medicine Adult Medicine; Visit Provider Internal Medicine | DX: E11.65 Type 2 diabetes mellitus with hyperglycemia (principal); E78.5 Hyperlipidemia, unspecified; E66.01 Morbid (severe) obesity due to excess calories; Z68.42 Body mass index [BMI] 45.0-49.9, adult; Z79.84 Long term (current) use of oral hypoglycemic drugs | CPT/HCPCS: 99214 ==

== ENCOUNTER → 2024-01-15 07:05 | Outpatient (BNVA) | payer MEDICAID, SELFPAY | PROVIDERS: PCP Family Medicine Adult Medicine; Visit Provider Podiatrist Foot & Ankle Surgery | DX: M76.821 Posterior tibial tendinitis, right leg (principal) | CPT/HCPCS: 99213 ==

== ENCOUNTER 2024-03-02 16:22 | Outpatient (CLI) | payer MEDICAID, SELFPAY ==
--- NOTE | 2024-03-02 16:27 | XRR_ITS ---
PROCEDURE INFORMATION: Exam: XR Cervical Spine Exam date and time: 03/02/2024 4:32 PM Age: 33 years old Clinical indication: Neck pain TECHNIQUE: Imaging protocol: Radiologic exam of the cervical spine. Views: 2 or 3 views. COMPARISON: MR mendez wo con [id number] 11/16/2021 7:36 AM FINDINGS: Bones/joints: Normal. No acute fracture. Normal alignment. Soft tissues: Unremarkable. XR/XR cervical spine 3V* [id number] IMPRESSION: No acute findings.
== END 2024-03-02 16:23 | disposition home or self-care (01) ==
LOC: RAD 16:25
PROVIDERS: PCP Family Medicine Adult Medicine; Visit Provider Nurse Practitioner Family
DX: M54.2 Cervicalgia (principal)
CPT/HCPCS: 72040

== ENCOUNTER → 2024-03-12 09:35 | Outpatient (BNVA) | payer MEDICAID, SELFPAY | PROVIDERS: PCP Family Medicine Adult Medicine; Visit Provider Nurse Practitioner Women's Health | DX: Z01.419 Encounter for gynecological examination (general) (routine) without abnormal findings (principal) | CPT/HCPCS: 87624 ==

== ENCOUNTER 2024-03-19 09:28 | Outpatient (CLI) | payer MEDICAID, SELFPAY ==
[2024-03-19 10:17] LABS: Estmated Average Glucose 192; Hemoglobin A1C 8.3 % (4.0-6.0)
[2024-03-19 10:41] LABS: Creatinine Urine, Random 36 mg/dL (28-217); Microalbum Creatinine Ratio Ur 28 mg/dL (0-20); Microalbumin Random Urine 1 ug/dL (0-20)
[2024-03-19 10:49] LABS: Alanine Aminotransferase 12 U/L (0-33); Albumin Level 3.9 g/dL (3.5-5.2); Alkaline Phosphatase 80 U/L (35-105); Anion Gap 16.8 (5-19); Aspartate Amino Transferase 15 U/L (0-32); Blood Urea Nitrogen 11 mg/dL (6-20); Calcium 9.1 mg/dL (8.5-10.5); Carbon Dioxide 24 mmol/L (22-29); Chloride 99 mmol/L (98-107); Chol HDL Ratio 3.38 mg/dL (0.0-4.40); Cholesterol 135 mg/dL (0-200); Globulin 3.7 g/dL (1.3-4.6); Glomerular Filtration Rate 113.8 mL/min (90-130); Glucose 134 mg/dL (65-115); HDL Cholesterol 40 mg/dL (60-100); LDL Cholesterol Calculated 76 mg/dL (50-129); Osmolality Calculated 283 mOsm/kg (285-295); Potassium 3.8 mmol/L (3.5-5.1); Sodium 136 mmol/L (136-145); Total Bilirubin 0.4 mg/dL (0.15-1.2); Total Protein 7.6 g/dL (6.6-8.7); Triglycerides 94 mg/dL (0-150)
== END 2024-03-19 09:29 | disposition home or self-care (01) ==
LOC: LAB 09:30
PROVIDERS: PCP Family Medicine Adult Medicine; Visit Provider Internal Medicine
DX: E11.65 Type 2 diabetes mellitus with hyperglycemia (principal); E78.5 Hyperlipidemia, unspecified; E66.01 Morbid (severe) obesity due to excess calories; Z68.42 Body mass index [BMI] 45.0-49.9, adult; H91.90 Unspecified hearing loss, unspecified ear
CPT/HCPCS: 36415; 80053; 80061; 82044; 83036; 99214

== ENCOUNTER 2024-05-22 09:54 | Emergency (ER) | payer MEDICAID, SELFPAY ==
[2024-05-22 10:13] VITALS: BP 143/112; PULSE 114; RESP 20; TEMP 37.1; O2SAT 96; BMI 44.8
--- NOTE | 2024-05-22 10:14 | W.ED.ALLEREA ---
HPI - Allergic Reaction General: Stated complaint: allegric reaction Time Seen by Provider: 05/22/24 09:55 Related Data Home Medications ?Medication ?Instructions ?Recorded ?Confirmed acarbose 100 mg tablet 100 mg PO TID 05/22/24 05/22/24 atenolol 25 mg tablet 25 mg PO DAILY 05/22/24 atorvastatin 40 mg tablet 40 mg PO DAILY 05/22/24 azelastine 137 mcg (0.1 %) nasal 2 spray intranasal BID 05/22/24 spray empagliflozin 25 mg tablet 25 mg PO DAILY 05/22/24 (Jardiance) insulin glargine 100 unit/mL (3 38 unit SUBCUT DAILY 05/22/24 05/22/24 mL) subcutaneous pen (Lantus Solostar U-100 Insulin) losartan 50 mg tablet 50 mg PO DAILY 05/22/24 05/22/24 norethindrone (contraceptive) 0.35 0.35 mg PO DAILY 05/22/24 05/22/24 mg tablet Previous Rx's ?Medication ?Instructions ?Recorded loratadine 10 mg tablet 10 mg PO DAILY allergies #90 tabs 08/16/23 epinephrine 0.3 mg/0.3 mL 0.3 mg (0.3 mL) IM Q10M PRN 09/27/23 injection, auto-injector anaphylaxis #1 ea metformin 1,000 mg tablet 1,000 mg PO BID #180 tabs 11/27/23 venlafaxine 75 mg tablet 75 mg PO TID mental health 30 days 12/11/23 #90 tabs ibuprofen 800 mg tablet 800 mg PO Q8H PRN pain #90 tabs 03/02/24 tizanidine 4 mg tablet 4 mg PO Q8H PRN muscle spasticity 03/02/24 #90 tabs dulaglutide 4.5 mg/0.5 mL 4.5 mg (0.5 mL) SUBCUT Q7D #2 mL 03/19/24 subcutaneous [facility] ([facility] Allergies Allergy/AdvReac Type Severity Reaction Status Date / Time ROSALINA Inhibitors Allergy ALGY-Swell Verified 03/19/24 08:07 Lip/Tongue/Throat citalopram (From Celexa) Allergy ADR-Nausea Verified 03/19/24 08:07 lisinopril Allergy ALGY-Swell Verified 03/19/24 08:07 Lip/Tongue/Throat PFSH ED PFSH: Medical History Scabies infestation Diabetes mellitus Headache above the eye region LGSIL on Pap smear of cervix No pertinent past medical history neghx:thyroid,dvt/pe 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 Allergic rhinitis due to allergen Chronic gastroesophageal reflux disease Genital herpes (~05/2020) Confirmed HSV 1 Polycystic ovarian syndrome Hypertension associated with diabetes Dyslipidemia Anxiety and depression Morbid obesity with BMI of 45.0-49.9, adult Surgical History History of dental surgery Family History Grandmother Hypertension Maternal Heart disease maternal and paternal Hypercholesteremia maternal Family/Other Uterine cancer paternal cousin, age onset unknown Denies family history of Colon cancer Ovarian cancer Diabetes Breast cancer Thyroid disease Stroke Social History Smoking and tobacco/nicotine status: former use of tobacco/nicotine Discharge Plan Discharge Condition: Stable Prescriptions: No Action loratadine 10 mg tablet 10 mg PO DAILY Qty: 90 5RF Rx Instructions: 340 B medications venlafaxine 75 mg tablet 75 mg PO TID 30 Days Qty: 90 5RF Rx Instructions: Please take a total of 225 ONCE daily. Thanks. Trulicity 4.5 mg/0.5 mL pen injector 4.5 mg SUBCUT Q7D Qty: 2 2RF Rx Instructions: inject 4.5mg weekly metformin 1,000 mg tablet 1,000 mg PO BID Qty: 180 1RF ibuprofen 800 mg tablet 800 mg PO Q8H PRN (Reason: pain) Qty: 90 0RF tizanidine 4 mg tablet 4 mg PO Q8H PRN (Reason: muscle spasticity) Qty: 90 0RF epinephrine 0.3 mg/0.3 mL auto-injector 0.3 mg IM Q10M PRN (Reason: anaphylaxis) Qty: 1 1RF Rx Instructions: for 2 doses atorvastatin 40 mg tablet 40 mg PO DAILY Rx Instructions: TAKE 1 TABLET BY MOUTH EVERY DAY FOR dyslipidemia atenolol 25 mg tablet 25 mg PO DAILY Rx Instructions: TAKE 1 TABLET BY MOUTH EVERY DAY FOR HIGH BLOOD PRESSURE acarbose 100 mg tablet 100 mg PO TID Rx Instructions: TAKE 1 TABLET BY MOUTH THREE TIMES DAILY azelastine 137 mcg (0.1 %) spray,non-aerosol 2 spray intranasal BID Rx Instructions: USE TWO SPRAYS in each nostril TWICE DAILY FOR nasal congestion insulin glargine [Lantus Solostar U-100 Insulin] 100 unit/mL (3 mL) insulin pen 38 unit SUBCUT DAILY Rx Instructions: INJECT 38 UNITS SUBCUTANEOUSLY ONCE DAILY Jardiance 25 mg tablet 25 mg PO DAILY Rx Instructions: TAKE 1 TABLET BY MOUTH EVERY DAY losartan 50 mg tablet 50 mg PO DAILY Rx Instructions: TAKE 1 TABLET BY MOUTH EVERY DAY norethindrone (contraceptive) 0.35 mg tablet 0.35 mg PO DAILY Rx Instructions: TAKE 1 TABLET BY MOUTH EVERY DAY Referrals: Williams Dunbar MD [Primary Care Provider] - Print Language: Divehi Coding Level of Care Code ED 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
--- NOTE | 2024-05-22 10:21 | W.ED.DENTAL ---
HPI - Dental/Oral General: Chief complaint: Dental/Oral Stated complaint: allegric reaction Time Seen by Provider: 05/22/24 09:55 Source: patient Mode of arrival: ambulatory Limitations: no limitations History of Present Illness: Patient is a 33-year-old female who presents to the ED today with complaint of right sided facial swelling. She states she has had dental pain for several days and woke up this morning with swelling to the right side of her face. She is not having any trouble speaking, swallowing, or controlling secretions. She does have a dental appointment scheduled for next week. Denies neck pain, fevers, severe headache, or visual changes. MD Complaint: tooth pain Onset (ago): day(s) Duration: constant Severity: moderate Relieving factors: nothing Exacerbating factors: nothing Context: history of dental caries and poor dental care Associated symptoms: Denies ear or mastoid pain, fever(s) or odynophagia Treatment prior to arrival: none Related Data Home Medications ?Medication ?Instructions ?Recorded ?Confirmed acarbose 100 mg tablet 100 mg PO TID 05/22/24 05/22/24 atenolol 25 mg tablet 25 mg PO DAILY 05/22/24 05/22/24 atorvastatin 40 mg tablet 40 mg PO DAILY 05/22/24 05/22/24 azelastine 137 mcg (0.1 %) nasal 2 spray intranasal BID 05/22/24 05/22/24 spray empagliflozin 25 mg tablet 25 mg PO DAILY 05/22/24 05/22/24 (Jardiance) insulin glargine 100 unit/mL (3 38 unit SUBCUT DAILY 05/22/24 05/22/24 mL) subcutaneous pen (Lantus Solostar U-100 Insulin) losartan 50 mg tablet 50 mg PO DAILY 05/22/24 05/22/24 norethindrone (contraceptive) 0.35 0.35 mg PO DAILY 05/22/24 05/22/24 mg tablet Previous Rx's ?Medication ?Instructions ?Recorded loratadine 10 mg tablet 10 mg PO DAILY allergies #90 tabs 08/16/23 epinephrine 0.3 mg/0.3 mL 0.3 mg (0.3 mL) IM Q10M PRN 09/27/23 injection, auto-injector anaphylaxis #1 ea metformin 1,000 mg tablet 1,000 mg PO BID #180 tabs 11/27/23 venlafaxine 75 mg tablet 75 mg PO TID mental health 30 days 12/11/23 #90 tabs ibuprofen 800 mg tablet 800 mg PO Q8H PRN pain #90 tabs 03/02/24 tizanidine 4 mg tablet 4 mg PO Q8H PRN muscle spasticity 03/02/24 #90 tabs dulaglutide 4.5 mg/0.5 mL 4.5 mg (0.5 mL) SUBCUT Q7D #2 mL 03/19/24 subcutaneous pen injector (Trulicity) clindamycin HCl 300 mg capsule 300 mg PO Q6H 7 days #28 caps 05/22/24 Allergies Allergy/AdvReac Type Severity Reaction Status Date / Time ROSALINA Inhibitors Allergy ALGY-Swell Verified 05/22/24 10:23 Lip/Tongue/Throat citalopram (From Celexa) Allergy ADR-Nausea Verified 05/22/24 10:23 lisinopril Allergy ALGY-Swell Verified 05/22/24 10:23 Lip/Tongue/Throat Review of Systems Const: Denies: fever(s), chills, body aches, fatigue or malaise ENMT: Reports: dental pain and sinus pain; Denies: enlarged tonsils, odynophagia, swelling of lips/tongue, oral sores, ear or mastoid pain, ear discharge, nasal discharge or nasal congestion Card: Denies: chest pain Resp: Denies: dyspnea GI: Denies: nausea or vomiting Musc: Denies: neck pain Skin/Breast: Denies: rash Neuro: Denies: headache(s) PFSH ED PFSH: Medical History Scabies infestation Diabetes mellitus Headache above the eye region LGSIL on Pap smear of cervix No pertinent past medical history neghx:thyroid,dvt/pe PCP: Joselyn Iqbal NP Allergic rhinitis due to allergen Chronic gastroesophageal reflux disease Genital herpes (~05/2020) Confirmed HSV 1 Polycystic ovarian syndrome Hypertension associated with diabetes Dyslipidemia Anxiety and depression Morbid obesity with BMI of 45.0-49.9, adult Surgical History History of dental surgery Family History Grandmother Hypertension Maternal Heart disease maternal and paternal Hypercholesteremia maternal Family/Other Uterine cancer paternal cousin, age onset unknown Denies family history of Colon cancer Ovarian cancer Diabetes Breast cancer Thyroid disease Stroke Social History Smoking and tobacco/nicotine status: former use of tobacco/nicotine Physical Exam Const: COMMON NORMALS: no acute distress, alert and well nourished EXAM LIMITATIONS: other limitations (deaf; communicates well by lip reading) GENERAL APPEARANCE: cooperative ORIENTATION/CONSCIOUSNESS: Yes awake, Yes oriented to person, Yes oriented to place and Yes oriented to time HENMT: COMMON NORMALS: normocephalic, atraumatic and Normal external nose present HEAD & SCALP: normal to inspection, normocephalic and atraumatic FACE & SINUS: edema and other (R sided facial swelling); no ecchymosis and no fluctuance FACE & SINUS IMAGES:  1. facial swelling NOSE: Normal external nose present MOUTH: Normal oral and palatal mucosa present and lip normal TEETH & GINGIVA: Yes poor dentition and Yes other (severe widespread dental disease; every tooth with significant decay) THROAT: posterior oropharynx normal and tonsils normal Eye: GENERAL EYE: appearance normal, both eyes and all related structures Neck/C-Spine: GENERAL: No anterior neck swelling and No submandibular swelling Resp: COMMON NORMALS: normal respiratory effort and clear to auscultation bilaterally AUSCULTATION: clear to auscultation bilaterally Cardio: COMMON NORMALS: regular rhythm RATE: tachycardic RHYTHM: regular rhythm Neuro: SENSORIUM/ORIENTATION: Yes alert, Yes oriented to person, Yes oriented to place and Yes oriented to time Course Vital Signs: Vital signs: Vital Signs Temperature 98.7 F 05/22/24 10:13 Pulse Rate 114 H 05/22/24 10:13 Respiratory Rate 20 H 05/22/24 10:13 Blood Pressure 143/112 05/22/24 10:13 Pulse Oximetry 96 05/22/24 10:13 Oxygen Delivery Me thod Room Air 05/22/24 10:13 MDM - Dental/Oral Medical Decision Making Patient was given IM clindamycin prior to discharge. She will be placed on oral clindamycin and recommended to follow-up with her dentist as scheduled next week. Return ED precautions discussed. Differential Diagnosis Likely gingival abscess, dental caries, toothache and dental abscess Medical Records I reviewed the patient's medical records. No radiology studies performed this visit Discharge Plan Discharge Patient Disposition: Home Clinical Impression: Dental infection Condition: Stable Prescriptions: New clindamycin HCl 300 mg capsule 300 mg PO Q6H 7 Days Qty: 28 0RF No Action loratadine 10 mg tablet 10 mg PO DAILY Qty: 90 5RF Rx Instructions: 340 B medications venlafaxine 75 mg tablet 75 mg PO TID 30 Days Qty: 90 5RF Rx Instructions: Please take a total of 225 ONCE daily. Thanks. Trulicity 4.5 mg/0.5 mL pen injector 4.5 mg SUBCUT Q7D Qty: 2 2RF Rx Instructions: inject 4.5mg weekly metformin 1,000 mg tablet 1,000 mg PO BID Qty: 180 1RF ibuprofen 800 mg tablet 800 mg PO Q8H PRN (Reason: pain) Qty: 90 0RF tizanidine 4 mg tablet 4 mg PO Q8H PRN (Reason: muscle spasticity) Qty: 90 0RF epinephrine 0.3 mg/0.3 mL auto-injector 0.3 mg IM Q10M PRN (Reason: anaphylaxis) Qty: 1 1RF Rx Instructions: for 2 doses atorvastatin 40 mg tablet 40 mg PO DAILY Rx Instructions: TAKE 1 TABLET BY MOUTH EVERY DAY FOR dyslipidemia atenolol 25 mg tablet 25 mg PO DAILY Rx Instructions: TAKE 1 TABLET BY MOUTH EVERY DAY FOR HIGH BLOOD PRESSURE acarbose 100 mg tablet 100 mg PO TID Rx Instructions: TAKE 1 TABLET BY MOUTH THREE TIMES DAILY azelastine 137 mcg (0.1 %) spray,non-aerosol 2 spray intranasal BID Rx Instructions: USE TWO SPRAYS in each nostril TWICE DAILY FOR nasal congestion insulin glargine [Lantus Solostar U-100 Insulin] 100 unit/mL (3 mL) insulin pen 38 unit SUBCUT DAILY Rx Instructions: INJECT 38 UNITS SUBCUTANEOUSLY ONCE DAILY Jardiance 25 mg tablet 25 mg PO DAILY Rx Instructions: TAKE 1 TABLET BY MOUTH EVERY DAY losartan 50 mg tablet 50 mg PO DAILY Rx Instructions: TAKE 1 TABLET BY MOUTH EVERY DAY norethindrone (contraceptive) 0.35 mg tablet 0.35 mg PO DAILY Rx Instructions: TAKE 1 TABLET BY MOUTH EVERY DAY Discharge Orders: Discharge ED (Routine); Ordered 05/22/24 Ordered By: Reba Bueno Referrals: Williams Dunbar MD [Primary Care Provider] - Patient Instructions: Dental Abscess Activity Restrictions/Additional Instructions: As we discussed, please fill your medications and start them this evening for treatment of your dental infection. As we discussed, you need to return to the emergency department for worsening pain or swelling despite antibiotic therapy. Please follow-up with dentist next week as scheduled. 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
[2024-05-22] MEDS: clindamycin 150 mg/mL SDV 6 mL 600 MG IM (11:39)
[2024-05-22 11:41] VITALS: BP 176/121; PULSE 112; O2SAT 96
== END 2024-05-22 11:43 | disposition home or self-care (01) ==
PROVIDERS: Emergency Provider Physician Assistant; PCP Family Medicine Adult Medicine
DX: K04.7 Periapical abscess without sinus (principal); Z79.84 Long term (current) use of oral hypoglycemic drugs; Z79.4 Long term (current) use of insulin; Z87.891 Personal history of nicotine dependence; E78.5 Hyperlipidemia, unspecified; E11.9 Type 2 diabetes mellitus without complications
CPT/HCPCS: 96372; 99284; J3490

== ENCOUNTER 2024-06-24 06:47 | Outpatient (CLI) | payer MEDICAID, SELFPAY ==
[2024-06-24 07:55] LABS: Alanine Aminotransferase 14 U/L (0-33); Albumin Level 3.8 g/dL (3.5-5.2); Alkaline Phosphatase 78 U/L (35-105); Anion Gap 16.1 (5-19); Aspartate Amino Transferase 19 U/L (0-32); Blood Urea Nitrogen 14 mg/dL (6-20); Calcium 8.9 mg/dL (8.5-10.5); Carbon Dioxide 24 mmol/L (22-29); Chloride 99 mmol/L (98-107); Chol HDL Ratio 3.46 mg/dL (0.0-4.40); Cholesterol 128 mg/dL (0-200); Globulin 3.8 g/dL (1.3-4.6); Glomerular Filtration Rate 113.8 mL/min (90-130); Glucose 209 mg/dL (65-115); HDL Cholesterol 37 mg/dL (60-100); Osmolality Calculated 287 mOsm/kg (285-295); Potassium 4.1 mmol/L (3.5-5.1); Sodium 135 mmol/L (136-145); Total Bilirubin 0.2 mg/dL (0.15-1.2); Total Protein 7.6 g/dL (6.6-8.7); Triglycerides 449 mg/dL (0-150)
[2024-06-24 07:57] LABS: Estmated Average Glucose 206; Hemoglobin A1C 8.8 % (4.0-6.0)
[2024-06-24 08:06] LABS: Creatinine Urine, Random 59 mg/dL (28-217); Microalbum Creatinine Ratio Ur 17 mg/dL (0-20); Microalbumin Random Urine 1 ug/dL (0-20)
[2024-06-24 08:10] LABS: LDL Cholesterol Direct 65 mg/dL (0-100)
== END 2024-06-24 06:48 | disposition home or self-care (01) ==
LOC: LAB 06:48
PROVIDERS: PCP Family Medicine Adult Medicine; Visit Provider Internal Medicine
DX: E11.65 Type 2 diabetes mellitus with hyperglycemia (principal); E66.01 Morbid (severe) obesity due to excess calories; Z68.42 Body mass index [BMI] 45.0-49.9, adult; E78.5 Hyperlipidemia, unspecified
CPT/HCPCS: 80053; 80061; 82044; 83036; 83721

== ENCOUNTER 2024-08-02 12:37 | Emergency (ER) | payer MEDICAID, SELFPAY ==
[2024-08-02 12:39] VITALS: BP 118/77; PULSE 73; TEMP 36.7; O2SAT 98; BMI 46.7
--- NOTE | 2024-08-02 13:09 | W.ED.DENTAL ---
HPI - Dental/Oral General: Chief complaint: Dental/Oral Stated complaint: tooth pain, face swelling Time Seen by Provider: 08/02/24 12:51 Source: patient History of Present Illness: Patient presents with left-sided facial and jaw pain that began 3-4 days ago. Pain started mildly on Saturday night but was initially ignored. Symptoms worsened yesterday and became significantly more severe this morning at 0400. Patient describes throbbing pain in the left jaw area that comes and goes every hour to hour and fifteen minutes, accompanied by piercing headaches. The pain is localized to the left side of the face with visible swelling noted. Patient has attempted self-treatment with ibuprofen 800mg, Listerine mouth rinse (which was suggested by patient's mother), and Orajel, which caused burning sensation. Patient reports mild coughing and congestion. No known fever. Mother, who is a nurse, suggested possible sinus etiology. Related Data Home Medications ?Medication ?Instructions ?Recorded ?Confirmed acarbose 100 mg tablet 100 mg PO TID 05/22/24 06/24/24 atenolol 25 mg tablet 25 mg PO DAILY 05/22/24 06/24/24 atorvastatin 40 mg tablet 40 mg PO DAILY 05/22/24 06/24/24 azelastine 137 mcg (0.1 %) nasal 2 spray intranasal BID 05/22/24 06/24/24 spray empagliflozin 25 mg tablet 25 mg PO DAILY 05/22/24 06/24/24 (Jardiance) losartan 50 mg tablet 50 mg PO DAILY 05/22/24 06/24/24 norethindrone (contraceptive) 0.35 0.35 mg PO DAILY 05/22/24 06/24/24 mg tablet Previous Rx's ?Medication ?Instructions ?Recorded loratadine 10 mg tablet 10 mg PO DAILY allergies #90 tabs 08/16/23 epinephrine 0.3 mg/0.3 mL 0.3 mg (0.3 mL) IM Q10M PRN 09/27/23 injection, auto-injector anaphylaxis #1 ea metformin 1,000 mg tablet 1,000 mg PO BID #180 tabs 11/27/23 venlafaxine 75 mg tablet 75 mg PO TID mental health 30 days 12/11/23 #90 tabs ibuprofen 800 mg tablet 800 mg PO Q8H PRN pain #90 tabs 03/02/24 tizanidine 4 mg tablet 4 mg PO Q8H PRN muscle spasticity 03/02/24 #90 tabs insulin glargine 100 unit/mL (3 See Rx Instructions .Route 06/03/24 mL) subcutaneous pen (Lantus .COMPLEX #15 mL Solostar U-100 Insulin) dulaglutide 4.5 mg/0.5 mL See Rx Instructions .Route 07/02/24 subcutaneous pen injector .COMPLEX #2 mL (Trulicity) amoxicillin 500 mg tablet 1,000 mg (2 x 500 mg) PO BID 10 08/02/24 days #40 tabs Allergies Allergy/AdvReac Type Severity Reaction Status Date / Time ROSALINA Inhibitors Allergy ALGY-Swell Verified 08/02/24 12:44 Lip/Tongue/Throat citalopram (From Celexa) Allergy ADR-Nausea Verified 08/02/24 12:44 lisinopril Allergy ALGY-Swell Verified 08/02/24 12:44 Lip/Tongue/Throat PFSH ED PFSH: Medical History Scabies infestation Diabetes mellitus Headache above the eye region LGSIL on Pap smear of cervix No pertinent past medical history neghx:thyroid,dvt/pe 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 Allergic rhinitis due to allergen Chronic gastroesophageal reflux disease Genital herpes (~05/2020) Confirmed HSV 1 Polycystic ovarian syndrome Hypertension associated with diabetes Dyslipidemia Anxiety and depression Morbid obesity with BMI of 45.0-49.9, adult Surgical History History of dental surgery Family History Grandmother Hypertension Maternal Heart disease maternal and paternal Hypercholesteremia maternal Family/Other Uterine cancer paternal cousin, age onset unknown Denies family history of Colon cancer Ovarian cancer Diabetes Breast cancer Thyroid disease Stroke Social History Smoking and tobacco/nicotine status: former use of tobacco/nicotine Physical Exam Const: COMMON NORMALS: no acute distress, average body habitus, alert and well nourished GENERAL APPEARANCE: cooperative ORIENTATION/CONSCIOUSNESS: Yes awake HENMT: COMMON NORMALS: normocephalic and atraumatic HEAD & SCALP: normocephalic and atraumatic OTHER: Patient has poor dentition with multiple dental caries. No trismus, oropharynx is clear no palpable masses or lesions of the jaw no evidence of gingival fluctuance or drainable fluid collection. Eye: COMMON NORMALS: conjunctivae normal CONJUNCTIVA: Yes conjunctivae normal Neck/C-Spine: GENERAL: Yes normal visual inspection Resp: COMMON NORMALS: normal respiratory effort, No retractions and No use of accessory muscles Cardio: COMMON NORMALS: regular rhythm and Peripheral pulses 2+ throughout RHYTHM: regular rhythm PERIPHERAL PULSES: Peripheral pulses 2+ throughout GI: COMMON NORMALS: Soft to palpation and non-tender PALPATION: Yes Soft to palpation Extremity: COMMON NORMALS: full ROM and no pedal edema Neuro: COMMON NORMALS: no focal motor deficits SENSORIUM/ORIENTATION: Yes alert Skin: COMMON NORMALS: no rashes or lesions noted GENERAL SKIN EXAM: no rashes or lesions noted Course Vital Signs: Vital signs: Vital Signs Temperature 98.0 F 08/02/24 12:39 Pulse Rate 73 08/02/24 12:39 Blood Pressure 118/77 08/02/24 12:39 Pulse Oximetry 98 08/02/24 12:39 Oxygen Delivery Me thod Room Air 08/02/24 12:39 MDM - Dental/Oral Medical Decision Making ROS: Constitutional: Denies fever HEENT: Positive for facial swelling and jaw pain on left side Respiratory: Minimal cough and congestion All other systems reviewed and negative MEDICATIONS AND ALLERGIES: Current Medications: - Metformin - Lantus - Atenolol - Atorvastatin - Losartan potassium - Jardiance (diabetic medication) Allergies: - Lisinopril - Celexa PAST HISTORICAL DATA: PMH: - Diabetes mellitus - Hypertension - Hypercholesterolemia PHYSICAL EXAM: General: Alert, non-toxic appearing, in mild distress due to pain HEENT: Head normocephalic and atraumatic. Visible swelling noted on left side of face and jaw area. Mucous membranes moist. Tenderness to palpation over left jaw region Neck: Supple Respiratory: No increased work of breathing, No wheezing Cardiac: Regular rate and rhythm, 2+ pulses in all extremities Abdomen: Soft, non-distended, no rebound or guarding Neuro: Cranial nerves grossly intact, no focal motor or sensory deficits noted INITIAL IMPRESSION AND PLAN: Given the history and presentation, the primary working diagnosis is dental abscess vs. sinusitis. Additional considerations include cellulitis of face. Plan: 1. Initiate antibiotic therapy with Amoxicillin 1000mg BID for 10 days 2. Recommend follow-up with dentist (Dr. Brown) for dental evaluation 3. Continue current pain management with ibuprofen CONSIDERED BUT NOT PERFORMED: Diagnostic imaging was considered but not performed as clinical presentation was consistent with either dental or sinus infection, both of which would be treated with the same antibiotic regimen. FINAL IMPRESSION: Based on all the above, my clinical impression is most compatible with dental abscess versus sinusitis. The clinical picture is not currently suggestive of more serious conditions such as facial fracture, malignancy, or deep space infection. Although other conditions were also considered, they were deemed unlikely based on the clinical information available. CLINICAL DISPOSITION: The patient's current condition is stable in my estimation and the most appropriate and indicated disposition at this time is discharge home with oral antibiotics and dental follow-up. Rationale for Discharge: Patient is stable, alert, and oriented with adequate pain control. No signs of systemic infection or severe complications. Patient has good follow-up options with local dentist and has demonstrated understanding of treatment plan and return precautions. RISK STRATIFICATION AND CLINICAL DECISION RULES APPLIED: No formal clinical decision rules were applicable to this presentation. CASE SUMMARY: 41-year-old patient with history of diabetes, hypertension, and hypercholesterolemia presented with progressive left-sided facial and jaw pain over 3-4 days, becoming severe this morning. Physical exam revealed left-sided facial swelling. Given presentation consistent with dental abscess vs. sinusitis, patient was treated with Amoxicillin 1000mg BID for 10 days and discharged with instructions to follow up with dentist. Patient demonstrated understanding of treatment plan and return precautions. No radiology studies performed this visit Discharge Plan Discharge Patient Disposition: Home Clinical Impression: Sinusitis, Dentalgia Condition: Stable Prescriptions: New amoxicillin 500 mg tablet 1,000 mg PO BID 10 Days Qty: 40 0RF No Action loratadine 10 mg tablet 10 mg PO DAILY Qty: 90 5RF Rx Instructions: 340 B medications venlafaxine 75 mg tablet 75 mg PO TID 30 Days Qty: 90 5RF Rx Instructions: Please take a total of 225 ONCE daily. Thanks. metformin 1,000 mg tablet 1,000 mg PO BID Qty: 180 1RF ibuprofen 800 mg tablet 800 mg PO Q8H PRN (Reason: pain) Qty: 90 0RF tizanidine 4 mg tablet 4 mg PO Q8H PRN (Reason: muscle spasticity) Qty: 90 0RF epinephrine 0.3 mg/0.3 mL auto-injector 0.3 mg IM Q10M PRN (Reason: anaphylaxis) Qty: 1 1RF Rx Instructions: for 2 doses insulin glargine [Lantus Solostar U-100 Insulin] 100 unit/mL (3 mL) insulin pen See Rx Instructions .ROUTE .COMPLEX Qty: 15 3RF Dose Instruction: INJECT 38 UNITS SUBCUTANEOUSLY ONCE DAILY Rx Instructions: INJECT 38 UNITS SUBCUTANEOUSLY ONCE DAILY Trulicity 4.5 mg/0.5 mL pen injector See Rx Instructions .ROUTE .COMPLEX Qty: 2 2RF Dose Instruction: INJECT 4.5MG (0.5ML) SUBCUTANEOUSLY EVERY 7 DAYS Rx Instructions: INJECT 4.5MG (0.5ML) SUBCUTANEOUSLY EVERY 7 DAYS atorvastatin 40 mg tablet 40 mg PO DAILY Rx Instructions: TAKE 1 TABLET BY MOUTH EVERY DAY FOR dyslipidemia atenolol 25 mg tablet 25 mg PO DAILY Rx Instructions: TAKE 1 TABLET BY MOUTH EVERY DAY FOR HIGH BLOOD PRESSURE acarbose 100 mg tablet 100 mg PO TID Rx Instructions: TAKE 1 TABLET BY MOUTH THREE TIMES DAILY azelastine 137 mcg (0.1 %) spray,non-aerosol 2 spray intranasal BID Rx Instructions: USE TWO SPRAYS in each nostril TWICE DAILY FOR nasal congestion Jardiance 25 mg tablet 25 mg PO DAILY Rx Instructions: TAKE 1 TABLET BY MOUTH EVERY DAY losartan 50 mg tablet 50 mg PO DAILY Rx Instructions: TAKE 1 TABLET BY MOUTH EVERY DAY norethindrone (contraceptive) 0.35 mg tablet 0.35 mg PO DAILY Rx Instructions: TAKE 1 TABLET BY MOUTH EVERY DAY Discharge Orders: Discharge ED (Routine); Ordered 08/02/24 Ordered By: Benoit Rodriguez Referrals: Williams Dunbar MD [Primary Care Provider, Family Practice] Patient Instructions: Sinusitis (ED), Opioid Safety, Pain Management Activity Restrictions/Additional Instructions: DISCHARGE INSTRUCTIONS: Take Amoxicillin 1000mg twice daily for 10 days as prescribed. Continue ibuprofen for pain as needed. Schedule follow-up appointment with Dr. Brown (dentist) this week for further evaluation. Return to the Emergency Department immediately if you develop fever, severe pain not controlled with prescribed medications, difficulty breathing, difficulty swallowing, severe swelling that affects breathing, or if symptoms worsen despite treatment. Also return if you develop any allergic reaction to the prescribed antibiotics such as rash, itching, or difficulty breathing. Print Language: Slovenian Coding Level of Care Code ED Panel Cutter for Melanieg Latasha
[2024-08-02 13:27] VITALS: BP 127/81; PULSE 77; O2SAT 94
== END 2024-08-02 13:28 | disposition home or self-care (01) ==
PROVIDERS: Emergency Provider Student in an Organized Health Care Education/Training Program; PCP Family Medicine Adult Medicine
DX: J32.9 Chronic sinusitis, unspecified (principal); K08.89 Other specified disorders of teeth and supporting structures; I10 Essential (primary) hypertension; E11.9 Type 2 diabetes mellitus without complications; E78.00 Pure hypercholesterolemia, unspecified; Z79.899 Other long term (current) drug therapy; Z79.84 Long term (current) use of oral hypoglycemic drugs
CPT/HCPCS: 99283

== ENCOUNTER 2024-09-23 07:33 | Outpatient (CLI) | payer MEDICAID, SELFPAY ==
[2024-09-23 08:31] LABS: Alanine Aminotransferase 17 U/L (0-33); Albumin Level 3.8 g/dL (3.5-5.2); Alkaline Phosphatase 67 U/L (35-105); Anion Gap 17.3 (5-19); Aspartate Amino Transferase 19 U/L (0-32); Blood Urea Nitrogen 9 mg/dL (6-20); Calcium 9.4 mg/dL (8.5-10.5); Carbon Dioxide 24 mmol/L (22-29); Chloride 100 mmol/L (98-107); Cholesterol 142 mg/dL (0-200); Globulin 3.8 g/dL (1.3-4.6); Glucose 183 mg/dL (65-115); HDL Cholesterol 38 mg/dL (60-100); Osmolality Calculated 287 mOsm/kg (285-295); Potassium 4.3 mmol/L (3.5-5.1); Sodium 137 mmol/L (136-145); Total Protein 7.6 g/dL (6.6-8.7); Triglycerides 254 mg/dL (0-150)
[2024-09-23 08:32] LABS: Creatinine Urine, Random 37 mg/dL (28-217); Microalbum Creatinine Ratio Ur 27 mg/dL (0-20)
[2024-09-23 09:09] LABS: Estmated Average Glucose 226; Hemoglobin A1C 9.5 % (4.0-6.0)
== END 2024-09-23 07:34 | disposition home or self-care (01) ==
PROVIDERS: PCP Family Medicine Adult Medicine; Visit Provider Internal Medicine
DX: E66.01 Morbid (severe) obesity due to excess calories (principal); Z68.42 Body mass index [BMI] 45.0-49.9, adult; E78.5 Hyperlipidemia, unspecified; H91.90 Unspecified hearing loss, unspecified ear; E11.65 Type 2 diabetes mellitus with hyperglycemia
CPT/HCPCS: 36415; 80053; 80061; 82044; 83036

== ENCOUNTER 2024-10-19 15:03 | Emergency (ER) | payer MEDICAID, SELFPAY ==
[2024-10-19 15:04] VITALS: BP 142/90; PULSE 79; RESP 16; TEMP 36.7; O2SAT 96; BMI 47.0
--- NOTE | 2024-10-19 15:08 | ECG_ITS ---
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 Measurements Intervals [place] Rate: 83 P: 46 [place]: 144 QRS: 64 QRSD: 97 T: 40 QT: 355 QTc: 418 Interpretive Statements SINUS RHYTHM No previous ECG available for comparison Electronically Signed On 10-19-2024 22:44:36 CDT by Shakira Pedraza M.D. [email or web address]
[2024-10-19 15:50] VITALS: BP 125/77; PULSE 83; O2SAT 94
[2024-10-19 15:53] LABS: Hematocrit 35.0 % (36-47); Hemoglobin 11.70 g/dL (11.27-16.99); Mean Corpuscular HGB Conc 33.4 g/dL (30-55); Mean Corpuscular Hemoglobin 30.0 pg (27-33); Mean Corpuscular Volume 89.7 fl (85-98); Nucleated Red Blood Cells % 0 %; Platelet Count 355 10^3/cmm (157-399); Red Blood Count 3.90 10^6/uL (3.85-5.65); White Blood Count 9.57 10^3/uL (3.29-11.43)
[2024-10-19 15:56] LABS: HCG Qualitative Urine. Negative (Negative)
[2024-10-19 16:09] VITALS: BP 116/77; PULSE 86; O2SAT 93
[2024-10-19 16:09] LABS: Alanine Aminotransferase 17 U/L (0-33); Albumin Level 3.9 g/dL (3.5-5.2); Alkaline Phosphatase 72 U/L (35-105); Anion Gap 14.8 (5-19); Aspartate Amino Transferase 20 U/L (0-32); Blood Urea Nitrogen 7 mg/dL (6-20); Calcium 9.3 mg/dL (8.5-10.5); Carbon Dioxide 25 mmol/L (22-29); Chloride 102 mmol/L (98-107); Creatinine Clr Calc Pharmacy 188.3146; Globulin 3.8 g/dL (1.3-4.6); Glucose 221 mg/dL (65-115); Lipase 44 U/L (13-60); Osmolality Calculated 291 mOsm/kg (285-295); Potassium 3.8 mmol/L (3.5-5.1); Sodium 138 mmol/L (136-145); Total Protein 7.7 g/dL (6.6-8.7)
--- NOTE | 2024-10-19 16:14 | W.ED.ABDPA2 ---
HPI - Abdominal Pain General: Chief Complaint: Abdominal Pain Stated Complaint: burning/ stuck feeling in throat/chest, SOB Time Seen by Provider: 10/19/24 15:23 History of Present Illness: Chief complaint is hurts to swallow. The patient states for the last 2 days she feels like when she tries to swallow food feels like it gets stuck for a little bit and causes discomfort and spasm substernal. She states it is epigastric a little bit and substernal. She states it does not radiate to the arm jaw or back. She states that if she tries to drink water to get it and go through it makes it even more uncomfortable. She states eventually it will seem to go through and then she will feel fine. She states she can drink liquids without difficulty and it is only solids. She has no chest pain or chest discomfort except for when she tries to swallow solid. She is able to take her pills. No headache. No numbness weakness or tingling her arms or legs. No black or bloody stools. Related Data Home Medications ?Medication ?Instructions ?Recorded ?Confirmed losartan 50 mg tablet 50 mg PO DAILY 05/22/24 10/14/24 norethindrone (contraceptive) 0.35 0.35 mg PO DAILY 05/22/24 10/14/24 mg tablet Previous Rx's ?Medication ?Instructions ?Recorded loratadine 10 mg tablet 10 mg PO DAILY allergies #90 tabs 08/16/23 epinephrine 0.3 mg/0.3 mL 0.3 mg (0.3 mL) IM Q10M PRN 09/27/23 injection, auto-injector anaphylaxis #1 ea venlafaxine 75 mg tablet 75 mg PO TID mental health 30 days 12/11/23 #90 tabs ibuprofen 800 mg tablet 800 mg PO Q8H PRN pain #90 tabs 03/02/24 tizanidine 4 mg tablet 4 mg PO Q8H PRN muscle spasticity 03/02/24 #90 tabs insulin glargine 100 unit/mL (3 See Rx Instructions .Route 06/03/24 mL) subcutaneous pen (Lantus .COMPLEX #15 mL Solostar U-100 Insulin) dulaglutide 4.5 mg/0.5 mL See Rx Instructions .Route 07/02/24 subcutaneous pen injector .COMPLEX #2 mL (Trulicity) acarbose 100 mg tablet 100 mg PO TID #90 tabs 08/10/24 atenolol 25 mg tablet See Rx Instructions .Route 08/10/24 .COMPLEX #90 tabs atorvastatin 40 mg tablet See Rx Instructions .Route 08/10/24 .COMPLEX #90 tabs azelastine 137 mcg (0.1 %) nasal See Rx Instructions .Route 08/10/24 spray .COMPLEX #30 mL empagliflozin 25 mg tablet See Rx Instructions .Route 08/10/24 (Jardiance) .COMPLEX #90 tabs metformin 1,000 mg tablet See Rx Instructions .Route 08/10/24 .COMPLEX #180 tabs blood-glucose sensor (Dexcom G7 #9 ea 09/29/24 Sensor device) omeprazole magnesium 20 mg 20 mg PO DAILY 28 days #28 tabs 10/19/24 tablet,delayed release (Prilosec OTC) sucralfate 1 gram tablet (Carafate) 1 g PO TID PRN pain with 10/19/24 swallowing 4 weeks #30 tabs Allergies Allergy/AdvReac Type Severity Reaction Status Date / Time ROSALINA Inhibitors Allergy ALGY-Swell Verified 10/19/24 15:10 Lip/Tongue/Throat citalopram (From Celexa) Allergy ADR-Nausea Verified 10/19/24 15:10 lisinopril Allergy ALGY-Swell Verified 10/19/24 15:10 Lip/Tongue/Throat [facility] ED PFSH: Medical History (Updated 10/19/24 @ 16:55 by Bronson Schultz MD) Scabies infestation Diabetes mellitus Headache above the eye region LGSIL on Pap smear of cervix No pertinent past medical history neghx:thyroid,dvt/pe 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 Allergic rhinitis due to allergen Chronic gastroesophageal reflux disease Genital herpes (~05/2020) Confirmed HSV 1 Polycystic ovarian syndrome Hypertension associated with diabetes Dyslipidemia Anxiety and depression Morbid obesity with BMI of 45.0-49.9, adult Surgical History History of dental surgery Family History Grandmother Hypertension Maternal Heart disease maternal and paternal Hypercholesteremia maternal Family/Other Uterine cancer paternal cousin, age onset unknown Denies family history of Colon cancer Ovarian cancer Diabetes Breast cancer Thyroid disease Stroke Social History Smoking and tobacco/nicotine status: former use of tobacco/nicotine Physical Exam Narrative: EXAM NARRATIVE: Alert oriented no acute distress. Neck is supple. Moist mucous membranes. Oropharynx posterior pharynx do not show erythema or exudates or asymmetry. No stridor. Breathing comfortably. Lung sounds clear. Heart regular rate and rhythm. Abdomen soft nontender no guarding or rebound. No epigastric tenderness. No palpable mass. Negative Matamoros's. No lower abdominal tenderness. She moves her neck and back freely. No tenderness. Extremities warm well-perfused. No calf tenderness. She has no drift in her arms or legs. Speech is clear. No ataxia. Alert and oriented. Normal skin color. Skin is warm well-perfused. Extremities warm well-perfused. Course Vital Signs: Vital signs: Vital Signs Temperature 98.1 F 10/19/24 15:04 Pulse Rate 86 10/19/24 16:09 Respiratory Rate 16 10/19/24 15:04 Blood Pressure 116/77 10/19/24 16:09 Pulse Oximetry 93 10/19/24 16:09 Oxygen Delivery Me thod Room Air 10/19/24 16:09 MDM - Abdominal Pain Medical Decision Making Patient presents complaining that 2 days she has trouble swallowing solids. She states she can drink liquids with no problem. She states that solids feel like they will get stuck. She has not vomited except for 1 time she vomited up some brown material. She states it was not clearly black or bloody but was more brown. Denies black or bloody stools. No fever. She states she does not have a sore throat. She states it only hurts if she tries to eat swallow solids. She states it eventually will go through but it feels like it gets stuck and she feels fullness sensation. Denies history of heart disease but she does have diabetes. She has high blood pressure. She denies any radiation of pain to her back. On exam no clear neurologic deficits and she denies any by history to suggest stroke causing her swallowing difficulties. She denies any clear foreign body ingestion or large food bolus to cause an obstruction. She is able to swallow liquids though may have partial impacted food bolus. She denies any new medications or NSAID use to cause esophagitis. Zenker's diverticulum, stricture, cancer, GERD, esophageal spasm, broad differential. Patient's symptoms clearly only with swallowing not suggestive of cardiac ischemia when I discussed with her cardiac workup. CBC CMP lipase and urine test ordered. Lipase not elevated, white count is normal and LFTs not elevated and test is negative. I ordered a GI cocktail for the patient. Patient is able to keep fluids down. Reasonable to continue with outpatient scope. Will provide referral. I advised patient limits of ED evaluation signs symptoms of worsening to watch and return for. I discussed adding on troponins for cardiac ischemia workup however patient states is only when she swallows a solid and she declines and states it is clearly not her heart which is reasonable after informed discussion. Patient states she felt much better after taking the GI cocktail. She states she was able to drink fluid without difficulty. She is asking for discharge home. Advised signs symptoms of concern to watch and return for. I prescribed Prilosec and Carafate after informed discussion. Advise close outpatient follow-up and return instructions and we will place order for surgical consultation for endoscopy. Advised patient come back if new or worsening symptoms. No neurologic complaints to suggest neurologic cause. No trouble with liquids. Lab Data o 10/19/24 15:43 10/19/24 15:43 Labs/Radiology: Laboratory Results WBC 9.57 10^3/uL (3.29-11.43) 10/19/24 15:43 RBC 3.90 10^6/uL (3.85-5.65) 10/19/24 15:43 Hgb 11.70 g/dL (11.27-16.99) 10/19/24 15:43 Hct 35.0 % (36-47) L 10/19/24 15:43 MCV 89.7 fl (85-98) 10/19/24 15:43 MCH 30.0 pg (27-33) 10/19/24 15:43 MCHC 33.4 g/dL (30-55) 10/19/24 15:43 RDW 13.6 % (12.1-15.1) 10/19/24 15:43 Plt Count 355 10^3/cmm (157-399) 10/19/24 15:43 MPV 10.5 fL (7.4-10.4) H 10/19/24 15:43 Neut % (Auto) 70.5 % 10/19/24 15:43 Lymph % (Auto) 20.3 % 10/19/24 15:43 [place] % (Auto) 7.1 % 10/19/24 15:43 Eos % (Auto) 1.5 % 10/19/24 15:43 Baso % (Auto) 0.3 % 10/19/24 15:43 Neut # (Auto) 6.75 10^3/uL (1.8-7.7) 10/19/24 15:43 Lymph # (Auto) 1.9 10^3/uL (0.8-4.8) 10/19/24 15:43 [place] # (Auto) 0.7 10^3/uL (0.2-0.9) 10/19/24 15:43 Eos # (Auto) 0.1 10^3/uL (0.0-0.8) 10/19/24 15:43 Baso # (Auto) 0.0 10^3/uL (0.0-0.1) 10/19/24 15:43 Nucleated RBC % (auto) 0 % 10/19/24 15:43 Nucleated RBCs # 0.0 /100WBC 10/19/24 15:43 Sodium 138 mmol/L (136-145) 10/19/24 15:43 Potassium 3.8 mmol/L (3.5-5.1) 10/19/24 15:43 Chloride 102 mmol/L (98-107) 10/19/24 15:43 Carbon Dioxide 25 mmol/L (22-29) 10/19/24 15:43 Anion Gap 14.8 (5-19) 10/19/24 15:43 BUN 7 mg/dL (6-20) 10/19/24 15:43 Creatinine 0.5 mg/dL (0.5-0.9) 10/19/24 15:43 GFR Calculation 139.6 mL/min (90-130) H 10/19/24 15:43 Glucose 221 mg/dL (65-115) H 10/19/24 15:43 Calculated Osmolality 291 mOsm/kg (285-295) 10/19/24 15:43 Calcium 9.3 mg/dL (8.5-10.5) 10/19/24 15:43 Total Bilirubin 0.4 mg/dL (0.15-1.2) 10/19/24 15:43 AST 20 U/L (0-32) 10/19/24 15:43 ALT 17 U/L (0-33) 10/19/24 15:43 Alkaline Phosphatase 72 U/L (35-105) 10/19/24 15:43 Total Protein 7.7 g/dL (6.6-8.7) 10/19/24 15:43 Albumin 3.9 g/dL (3.5-5.2) 10/19/24 15:43 Globulin 3.8 g/dL (1.3-4.6) 10/19/24 15:43 Lipase 44 U/L (13-60) 10/19/24 15:43 HCG, Qual Negative (Negative) 10/19/24 15:43 Urine Color Yellow (Yellow) 10/19/24 15:43 Urine Appearance Clear (CLEAR) 10/19/24 15:43 Urine pH 7.0 (5-7) 10/19/24 15:43 Ur Specific [place] 1.038 (1.005-1.030) H 10/19/24 15:43 Urine Protein Negative (Negative) 10/19/24 15:43 Urine Glucose (UA) 3+ (Normal) H 10/19/24 15:43 Urine Ketones Negative (Negative) 10/19/24 15:43 Urine Blood Negative (Negative) 10/19/24 15:43 Urine Nitrate Positive (Negative) A 10/19/24 15:43 Urine Bilirubin Negative (Negative) 10/19/24 15:43 Urine Urobilinogen 0.2 mg/dL (Negative) 10/19/24 15:43 Ur Leukocyte Esterase Negative (Negative) 10/19/24 15:43 Urine RBC 0-2 /hpf (0-2) 10/19/24 15:43 Urine WBC 51-100 /hpf (0-5) H 10/19/24 15:43 Ur Squamous Epith Cells 11-20 /hpf (0-5) H 10/19/24 15:43 Amorphous Sediment Not Reportable 10/19/24 15:43 Urine Bacteria 4+ /hpf (NONE) H 10/19/24 15:43 Hyaline Casts 0-4 /lpf H 10/19/24 15:43 No radiology studies performed this visit Discharge Plan Discharge Patient Disposition: Home Clinical Impression: Odynophagia Condition: Stable Prescriptions: New omeprazole magnesium [Prilosec OTC] 20 mg tablet,delayed release (DR/EC) 20 mg PO DAILY 28 Days Qty: 28 0RF sucralfate [Carafate] 1 gram tablet 1 g PO TID PRN (Reason: pain with swallowing) 28 Days Qty: 30 0RF No Action loratadine 10 mg tablet 10 mg PO DAILY Qty: 90 5RF Rx Instructions: 340 B medications venlafaxine 75 mg tablet 75 mg PO TID 30 Days Qty: 90 5RF Rx Instructions: Please take a total of 225 ONCE daily. Thanks. ibuprofen 800 mg tablet 800 mg PO Q8H PRN (Reason: pain) Qty: 90 0RF tizanidine 4 mg tablet 4 mg PO Q8H PRN (Reason: muscle spasticity) Qty: 90 0RF epinephrine 0.3 mg/0.3 mL auto-injector 0.3 mg IM Q10M PRN (Reason: anaphylaxis) Qty: 1 1RF Rx Instructions: for 2 doses insulin glargine [Lantus Solostar U-100 Insulin] 100 unit/mL (3 mL) insulin pen See Rx Instructions .ROUTE .COMPLEX Qty: 15 3RF Dose Instruction: INJECT 38 UNITS SUBCUTANEOUSLY ONCE DAILY Rx Instructions: INJECT 38 UNITS SUBCUTANEOUSLY ONCE DAILY Trulicity 4.5 mg/0.5 mL pen injector See Rx Instructions .ROUTE .COMPLEX Qty: 2 2RF Dose Instruction: INJECT 4.5MG (0.5ML) SUBCUTANEOUSLY EVERY 7 DAYS Rx Instructions: INJECT 4.5MG (0.5ML) SUBCUTANEOUSLY EVERY 7 DAYS metformin 1,000 mg tablet See Rx Instructions .ROUTE .COMPLEX Qty: 180 1RF Dose Instruction: take 1/2 tablet BY MOUTH TWICE DAILY FOR diabetes Rx Instructions: take 1/2 tablet BY MOUTH TWICE DAILY FOR diabetes azelastine 137 mcg (0.1 %) spray,non-aerosol See Rx Instructions .ROUTE .COMPLEX Qty: 30 5RF Dose Instruction: USE TWO SPRAYS in each nostril TWICE DAILY FOR nasal congestion Rx Instructions: USE TWO SPRAYS in each nostril TWICE DAILY FOR nasal congestion atenolol 25 mg tablet See Rx Instructions .ROUTE .COMPLEX Qty: 90 1RF Dose Instruction: TAKE 1 TABLET BY MOUTH EVERY DAY FOR HIGH BLOOD PRESSURE Rx Instructions: TAKE 1 TABLET BY MOUTH EVERY DAY FOR HIGH BLOOD PRESSURE atorvastatin 40 mg tablet See Rx Instructions .ROUTE .COMPLEX Qty: 90 1RF Dose Instruction: TAKE 1 TABLET BY MOUTH EVERY DAY FOR dyslipidemia Rx Instructions: TAKE 1 TABLET BY MOUTH EVERY DAY FOR dyslipidemia Jardiance 25 mg tablet See Rx Instructions .ROUTE .COMPLEX Qty: 90 1RF Dose Instruction: TAKE 1 TABLET BY MOUTH EVERY DAY Rx Instructions: TAKE 1 TABLET BY MOUTH EVERY DAY acarbose 100 mg tablet 100 mg PO TID Qty: 90 0RF Rx Instructions: TAKE 1 TABLET BY MOUTH THREE TIMES DAILY (DME) Dexcom G7 Sensor Device See Rx Instructions .ROUTE .COMPLEX Qty: 9 1RF Dose Instruction: CHANGE sensor every 10 DAYS Rx Instructions: CHANGE sensor every 10 DAYS losartan 50 mg tablet 50 mg PO DAILY Rx Instructions: TAKE 1 TABLET BY MOUTH EVERY DAY norethindrone (contraceptive) 0.35 mg tablet 0.35 mg PO DAILY Rx Instructions: TAKE 1 TABLET BY MOUTH EVERY DAY Discharge Orders: Discharge ED (Routine); Ordered 10/19/24 Ordered By: Bronson Schultz Referrals: Donita Rome NP [Primary Care Provider, Family Practice] Discharge Diet: Advance as tolerated Patient Instructions: Opioid Safety, Pain Management, Patient Portal & [place] Instructions Activity Restrictions/Additional Instructions: Come back if black or bloody stools, vomiting blood, vomiting, chest pain, unable to drink liquids, worsening symptoms, fever, trouble breathing, any worse or concerns. Please follow-up on your test results with your doctor. Do not take ibuprofen or other NSAIDs. Ibuprofen is listed on your medication list. Please do not take this unless advised otherwise by your doctor. Follow-up with surgeon for endoscopy. Follow-up with your primary care physician this week. Eat soft diet only and make sure to drink plenty of fluids. 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
[2024-10-19 16:21] LABS: Glucose Urine UA 3+ (Normal); Nitrate Urine Positive (Negative)
[2024-10-19 16:27] LABS: Add Urine Microscopic? YES
[2024-10-19] MEDS: lidocaine 2% viscous 15 ML, aluminum-mag hydrox-simethicon 30 ML, sucralfate oral liq 1 GM PO (16:29)
[2024-10-19 16:37] LABS: Specific Gravity, Urine 1.038 (1.005-1.030)
--- NOTE | 2024-10-19 17:02 | DCPLANNER ---
messaged gen surg for er f/u
[2024-10-19 17:12] VITALS: BP 130/93; PULSE 83; O2SAT 94
--- OUTSIDE RECORDS SUMMARY | 2024-10-21 11:43 | XMS_ITS | Clinical Summary ---
Author Organization [facility] Address [address] [place] [address] Care Team Providers Care Banana Loader Name Role Phone Unavailable Primary Care Provider Unavailabl e Social History Tobacco Use Types Packs/Day Years Used Date Smoking Tobacco: Never Assessed Comments Unknown Sex and Gender Information Value Date Recorded Sex Assigned at Not on file Legal Sex Female 12:02 PM CDT Gender Identity Not on file Sexual Orientation Not on file Plan of Treatment Health Maintenance Due Date Last Done Comments HPV VACCINES (1 - 3-dose series) 06/27/2003 DTAP/TDAP/TD VACCINES (6 - Tdap) 09/04/2003 09/03/2003, 10/30/1993, 12/06/1989, Additional history exists HPV/Cotest (21-29) 2009 CERVICAL CANCER SCREENING 2018 HPV/Cotest (30-65) 2018 PAP SMEAR 2018 COVID-19 Vaccine (2 - 2023-2 5 season) 2023 06/17/2020 INFLUENZA VACCINE (#1) 2024 HEPATITIS B VACCINES Completed 01/25/1999, 08/29/1998, 07/27/1998 Insurance [place]ICA[place]
== END 2024-10-19 17:13 | disposition home or self-care (01) ==
PROVIDERS: Emergency Provider Emergency Medicine
DX: R13.10 Dysphagia, unspecified (principal); Z79.4 Long term (current) use of insulin; Z79.84 Long term (current) use of oral hypoglycemic drugs; Z79.85 Long-term (current) use of injectable non-insulin antidiabetic drugs; Z87.891 Personal history of nicotine dependence; E78.5 Hyperlipidemia, unspecified; E11.9 Type 2 diabetes mellitus without complications
CPT/HCPCS: 80053; 81001; 81025; 83690; 85025; 87077; 87086; 87186; 93005; 99284; J9999

== ENCOUNTER → 2024-10-30 08:44 | Outpatient (BNVA) | payer MEDICAID, SELFPAY | PROVIDERS: Visit Provider Student in an Organized Health Care Education/Training Program | DX: Z09 Encounter for follow-up examination after completed treatment for conditions other than malignant neoplasm (principal); K21.9 Gastro-esophageal reflux disease without esophagitis; R12 Heartburn | CPT/HCPCS: 99204 ==

== ENCOUNTER → 2024-11-04 14:01 | Outpatient (BNVA) | payer MEDICAID, SELFPAY | PROVIDERS: Visit Provider Podiatrist Foot & Ankle Surgery | DX: M25.571 Pain in right ankle and joints of right foot (principal); M76.61 Achilles tendinitis, right leg; S86.011A Strain of right Achilles tendon, initial encounter; X58.XXXA Exposure to other specified factors, initial encounter | CPT/HCPCS: 73610; 99214 ==

== ENCOUNTER 2024-11-17 05:37 | Day surgery (SDC) | payer MEDICAID, SELFPAY ==
[2024-11-17 05:53] VITALS: BP 131/102; PULSE 85; RESP 18; TEMP 36.6; O2SAT 94; BMI 45.8
[2024-11-17 06:11] LABS: OR HCG Qualitative Urine Negative (Negative)
--- NOTE | 2024-11-17 06:34 | ANES.PREANE2 ---
Pre-Anesthetic Assessment Height/Weight: Height 5 ft 2 in Weight 251 lb Temp Pulse Resp BP Pulse Ox O2 Del Method 97.8 F 85 18 131/102 94 Room Air 11/17/24 05:53 11/17/24 05:53 11/17/24 05:53 11/17/24 05:53 11/17/24 05:53 11/17/24 05:53 Preop Diagnosis: GERD Operation Date: 11/17/24 07:00 Proposed Procedures p EGD EGD with Biopsy 79015 R12 K21.9(Not Applicable) - Seun Pascual MD Was Beta Kaz taken within 24 hours: N/A Was Clonidine taken within 24 hours: N/A Last intake: Intake Last Liquid Date 11/16/24 Last Liquid Time 23:00 Last Solid Date 11/16/24 Last Solid Time 18:00 Social No alcohol and No tobacco Exam alert, oriented x 3, clear to auscultation bilaterally and regular rate & rhythm Airway Submandibular: within normal limits Cervical ROM: within normal limits Mallampati: Class III Dentition: full Anesthetic Plan ASA status: 3 Anesthesia: MAC Other: No prior issues with anesthesia N.p.o. since yesterday evening History of type II DM, preop BS 271. Patient has not taken her Trulicity for 2 weeks. Plan to give 10 units insulin and recheck Hypertension on losartan BMI 45.9 METS creatinine 4 Plan for MAC anesthesia Medications/Allergies Home Medications ?Medication ?Instructions ?Recorded ?Confirmed ?Last Taken ?Type loratadine 10 mg tablet 10 mg PO DAILY allergies #90 tabs 08/16/23 11/17/24 11/07/24 Rx epinephrine 0.3 mg/0.3 mL 0.3 mg (0.3 mL) IM Q10M PRN 09/27/23 11/17/24 Unknown Rx injection, auto-injector anaphylaxis #1 ea venlafaxine 75 mg tablet 75 mg PO TID mental health 30 days 12/11/23 11/17/24 11/11/24 Rx #90 tabs tizanidine 4 mg tablet 4 mg PO Q8H PRN muscle spasticity 03/02/24 11/17/24 Unknown Rx #90 tabs losartan 50 mg tablet 50 mg PO DAILY 05/22/24 11/17/24 11/11/24 History acarbose 100 mg tablet 100 mg PO TID #90 tabs 08/10/24 11/17/24 11/11/24 Rx blood-glucose sensor (Dexcom G7 #9 ea 09/29/24 11/04/24 Unknown Rx Sensor device) cam boot #1 ea 11/04/24 11/11/24 Unknown Rx atenolol 25 mg tablet 25 mg PO DAILY 11/11/24 11/17/24 11/17/24 History atorvastatin 40 mg tablet 40 mg PO DAILY 11/11/24 11/17/24 11/11/24 History empagliflozin 25 mg tablet 25 mg PO DAILY 11/11/24 11/17/24 11/11/24 History (Jardiance) norethindrone (contraceptive) 0.35 0.35 mg PO DAILY #84 tabs 11/11/24 11/17/24 11/11/24 Rx mg tablet azelastine 137 mcg (0.1 %) nasal 2 spray intranasal BID 11/16/24 11/17/24 11/11/24 History spray dulaglutide 4.5 mg/0.5 mL 4.5 mg SUBCUT .WEEKLY 11/16/24 11/17/24 11/03/24 History subcutaneous pen injector (Trulicity) insulin glargine 100 unit/mL (3 38 unit SUBCUT DAILY 11/16/24 11/17/24 11/11/24 History mL) subcutaneous pen (Lantus Solostar U-100 Insulin) metformin 1,000 mg tablet 500 mg PO BID 11/16/24 11/17/24 11/11/24 History Allergies Allergy/AdvReac Type Severity Reaction Status Date / Time ROSALINA Inhibitors Allergy ALGY-Swell Verified 11/17/24 05:51 Lip/Tongue/Throat citalopram (From Celexa) Allergy ADR-Nausea Verified 11/17/24 05:51 lisinopril Allergy ALGY-Swell Verified 11/17/24 05:51 Lip/Tongue/Throat Current Medications Generic Name Dose Route Start Last Admin Trade Name Freq PRN Reason Stop Dose Admin Sodium Chloride 1,000 mls @ 15 mls/hr 11/17/24 05:45 11/17/24 06:15 Sodium Chloride 0.9% IV 11/18/24 05:44 15 mls/hr .Q24H PRN Administration COLONOSCOPY FLUIDS PFSH Anesthesia Medical History (Updated 11/11/24 @ 09:28 by Elisabeth Coronel NP) Scabies infestation Diabetes mellitus Headache above the eye region LGSIL on Pap smear of cervix No pertinent past medical history neghx:thyroid,dvt/pe PCP: Joselyn Iqbal NP Allergic rhinitis due to allergen Chronic gastroesophageal reflux disease Genital herpes (~05/2020) Confirmed HSV 1 Polycystic ovarian syndrome Hypertension associated with diabetes Dyslipidemia Anxiety and depression Morbid obesity with BMI of 45.0-49.9, adult Surgical History History of dental surgery Family History Grandmother Hypertension Maternal Heart disease maternal and paternal Hypercholesteremia maternal Family/Other Uterine cancer paternal cousin, age onset unknown Denies family history of Colon cancer Ovarian cancer Diabetes Breast cancer Thyroid disease Stroke Social History Smoking and tobacco/nicotine status: never used tobacco/nicotine Female Reproductive History Date of last menstrual period: 06/15/24
[2024-11-17] MEDS: insulin regular-human 100 units/1 mL 10 UNIT IVP (06:45)
--- NOTE | 2024-11-17 07:05 | W.PM.OPSFHP ---
Same Day Surgery H&P Indication for Procedure/HPI DATE OF PROCEDURE: November 17, 2024 CHIEF COMPLAINT/INDICATIONFOR SURGICAL PROCEDURE: GERD PREOP DIAGNOSIS: GERD PLANNED PROCEDURE: Operation Date: 11/17/24 07:00 Proposed Procedures p EGD EGD with Biopsy 03456 R12 K21.9(Not Applicable) - Seun Pascual MD Medications/Allergies* Home Medications ?Medication ?Instructions ?Recorded ?Confirmed ?Type losartan 50 mg tablet 50 mg PO DAILY 05/22/24 11/17/24 History atenolol 25 mg tablet 25 mg PO DAILY 11/11/24 11/17/24 History atorvastatin 40 mg tablet 40 mg PO DAILY 11/11/24 11/17/24 History empagliflozin 25 mg tablet 25 mg PO DAILY 11/11/24 11/17/24 History (Jardiance) azelastine 137 mcg (0.1 %) nasal 2 spray intranasal BID 11/16/24 11/17/24 History spray dulaglutide 4.5 mg/0.5 mL 4.5 mg SUBCUT .WEEKLY 11/16/24 11/17/24 History subcutaneous pen injector (Trulicity) insulin glargine 100 unit/mL (3 38 unit SUBCUT DAILY 11/16/24 11/17/24 History mL) subcutaneous pen (Lantus Solostar U-100 Insulin) metformin 1,000 mg tablet 500 mg PO BID 11/16/24 11/17/24 History Allergies/Adverse Reactions Allergy/AdvReac Type Severity Reaction Status Date / Time ROSALINA Inhibitors Allergy ALGY-Swell Verified 11/17/24 05:51 Lip/Tongue/Throat citalopram (From Celexa) Allergy ADR-Nausea Verified 11/17/24 05:51 lisinopril Allergy ALGY-Swell Verified 11/17/24 05:51 Lip/Tongue/Throat Current Medications: Generic Name Dose Route Start Last Admin Trade Name Freq PRN Reason Stop Dose Admin Sodium Chloride 1,000 mls @ 15 mls/hr 11/17/24 05:45 11/17/24 06:15 Sodium Chloride 0.9% IV 11/18/24 05:44 15 mls/hr .Q24H PRN Administration COLONOSCOPY FLUIDS Pertinent History/Comorbid Conditions* Medical History (Updated 11/11/24 @ 09:28 by Elisabeth Coronel NP) Scabies infestation Diabetes mellitus Headache above the eye region LGSIL on Pap smear of cervix No pertinent past medical history neghx:thyroid,dvt/pe 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 Allergic rhinitis due to allergen Chronic gastroesophageal reflux disease Genital herpes (~05/2020) Confirmed HSV 1 Polycystic ovarian syndrome Hypertension associated with diabetes Dyslipidemia Anxiety and depression Morbid obesity with BMI of 45.0-49.9, adult Surgical History (Updated 04/15/20 @ 11:15 by Jace Camarillo MD) History of dental surgery Family History (Updated 10/10/21 @ 08:47 by Joanna Hernandez) Heart disease Grandmother maternal and paternal Hypercholesteremia Grandmother maternal Hypertension Grandmother Maternal Uterine cancer Family/Other paternal cousin, age onset unknown Denies family history of Colon cancer Ovarian cancer Diabetes Breast cancer Thyroid disease Stroke Social History Smoking and tobacco/nicotine status: never used tobacco/nicotine Pertinent Exam Findings alert, oriented x 3, clear to auscultation bilaterally, regular rate & rhythm and procedure specific exam findings abdomen soft, nt, nd Recommendations Risks and benefits of procedure reviewed and Patient/family agree to proceed Surgery/Procedure today Coding Level of Care Code Acute Code for Chg Fwd
[2024-11-17 07:23] VITALS: BP 124/92; PULSE 83; RESP 18; TEMP 36.1; O2SAT 93
[2024-11-17 07:35] VITALS: BP 126/85; PULSE 83; RESP 18; O2SAT 95
--- NOTE | 2024-11-17 07:50 | ANE.PACU2 ---
Inpatient post-anesthesia follow up: Airway intact: Yes Vital signs: Temperature 97.0 F Pulse Rate 83 Respiratory Rate 18 Blood Pressure 126/85 Pulse Oximetry 95 Oxygen Delivery Me thod Room Air Oxygen Flow Rate Fraction of Inspir ed Oxygen Hydration adequate: Yes Nausea and vomiting: No Pain level: 1 Mental status: Baseline
== END 2024-11-17 07:50 | disposition home or self-care (01) ==
PROVIDERS: Student in an Organized Health Care Education/Training Program; PCP Family Medicine Adult Medicine; Visit Provider Student in an Organized Health Care Education/Training Program
PROC: 0DJ08ZZ Inspection of Upper Intestinal Tract, Via Natural or Artificial Opening Endoscopic (ICD-10-PCS; principal; 2024-11-17 07:00)
DX: K21.9 Gastro-esophageal reflux disease without esophagitis (principal); K29.30 Chronic superficial gastritis without bleeding; K29.40 Chronic atrophic gastritis without bleeding; E11.9 Type 2 diabetes mellitus without complications; E28.2 Polycystic ovarian syndrome; E78.5 Hyperlipidemia, unspecified; I10 Essential (primary) hypertension; F41.8 Other specified anxiety disorders; E66.01 Morbid (severe) obesity due to excess calories; Z68.42 Body mass index [BMI] 45.0-49.9, adult; Z79.84 Long term (current) use of oral hypoglycemic drugs; Z79.4 Long term (current) use of insulin
CPT/HCPCS: 36416; 43239; 81025; 82962; 88305; 88342; J1815; J2704; J7030

== ENCOUNTER 2024-11-25 06:52 | Outpatient (CLI) | payer MEDICAID, SELFPAY ==
--- NOTE | 2024-11-25 07:15 | MR_ITS ---
WS: [id number] EXAMINATION: MR ankle RT wo con* [id number] ORDER DATE: 11/25/2024 7:15 AM COMPARISON: None. HISTORY: Achilles tendon tear, right CONTRAST: None. TECHNIQUE: Axial proton density fat sat, axial T1, sagittal proton density, sagittal STIR, coronal T2 fat sat, and coronal T1 sequences performed. FINDINGS: Fusiform thickening of the Achilles with associated increased intrasubstance signal abnormality compatible with tendinosis. No full-thickness ruptures. Ossification and distended retrocalcaneal bursa with insertional tendinopathy and retrocalcaneal bursitis. 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 Recommend correlation with posterior heel pain. A few erosions along the dorsal calcaneus Tenosynovitis along the flexor compartment tendons. Peroneal is longus and brevis normal where visualized. Mild hypertrophic changes at the talonavicular articulation. MR/MR ankle RT wo con* [id number] IMPRESSION: 1. Diffuse fusiform thickening of the Achilles with associated tendinosis. No full-thickness tears. 2. 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 Recommend correlation with posterior heel pain. A few underlying erosions along the dorsal calcaneus can also be se en with inflammatory arthritis
== END 2024-11-25 06:53 | disposition home or self-care (01) ==
LOC: RAD 06:53
PROVIDERS: PCP Family Medicine Adult Medicine; Visit Provider Podiatrist Foot & Ankle Surgery
DX: S86.019A Strain of unspecified Achilles tendon, initial encounter (principal); X58.XXXA Exposure to other specified factors, initial encounter
CPT/HCPCS: 73721

== ENCOUNTER → 2024-12-02 07:35 | Outpatient (BNVA) | payer MEDICAID, SELFPAY | PROVIDERS: PCP Family Medicine Adult Medicine; Visit Provider Internal Medicine | DX: E78.5 Hyperlipidemia, unspecified (principal); E11.65 Type 2 diabetes mellitus with hyperglycemia; E66.01 Morbid (severe) obesity due to excess calories; Z68.42 Body mass index [BMI] 45.0-49.9, adult; H91.90 Unspecified hearing loss, unspecified ear; Z79.85 Long-term (current) use of injectable non-insulin antidiabetic drugs | CPT/HCPCS: 99214 ==

== ENCOUNTER → 2024-12-03 08:58 | Outpatient (BNVA) | payer MEDICAID, SELFPAY | PROVIDERS: PCP Family Medicine Adult Medicine; Visit Provider Student in an Organized Health Care Education/Training Program | DX: Z09 Encounter for follow-up examination after completed treatment for conditions other than malignant neoplasm (principal) | CPT/HCPCS: 99213 ==